=== PATIENT | male | born 1940 | race Caucasian/White ===

== ENCOUNTER 2018-05-12 04:42 | Inpatient (IN) ==
[2018-05-05 09:51] LABS: HEMATOCRIT 35.3 % (42.0-52.0); HEMOGLOBIN 10.9 g/dL (14.0-18.0); MCH 32.2 PG (27-31); MCHC 30.9 g/dL (33-37); MCV 104.4 FL (81-99); MPV 10.1 FL (7.4-10.4); RBC 3.38 XMIL (4.7-6.1); RDW 16.5 % (11.5-14.5); WBC 7.65 X1000 (4.8-10.8)
[2018-05-05 10:46] LABS: CALCIUM 9.1 mg/dL (8.8-10.2); POTASSIUM 4.8 mmol/L (3.5-5.1)
[2018-05-05 10:48] LABS: CREATININE 7.3 mg/dL (0.7-1.2)
[2018-05-12] MEDS ORDERED: INVANZ 1 GM/NS 1 GM/50 ML IVPB ONE (05:44)
[2018-05-12] MEDS ORDERED: 1/2 NS 500 ML ONE (05:44)
[2018-05-12] MEDS ORDERED: FENTANYL ONE (06:25)
[2018-05-12] MEDS ORDERED: DIPRIVAN 1% ONE (06:25)
[2018-05-12] MEDS ORDERED: XYLOCAINE-MPF 2% ONE (06:27)
[2018-05-12] MEDS ORDERED: QUELICIN (DOSE) ONE (06:27)
[2018-05-12] MEDS ORDERED: NORCURON ONE (06:27)
[2018-05-12] MEDS ORDERED: SODIUM CHLORIDE 0.9% 10 ML ONE (06:27)
[2018-05-12 07:05] LABS: CALCIUM 9.3 mg/dL (8.8-10.2); POTASSIUM 4.2 mmol/L (3.5-5.1)
[2018-05-12 07:07] LABS: CREATININE 6.8 mg/dL (0.7-1.2)
[2018-05-12] MEDS ORDERED: EPHEDRINE ONE (07:16)
[2018-05-12] MEDS ORDERED: ROBINUL ONE (08:26)
[2018-05-12] MEDS ORDERED: NEOSTIGMINE ONE (08:26)
[2018-05-12 08:30] LABS: URINE SOURCE CATH
[2018-05-12 08:55] LABS: BILIRUBIN URINE NEGATIVE (NEGATIVE); BLOOD URINE SMALL (NEGATIVE); COLOR YELLOW; GLUCOSE URINE NEGATIVE (NEGATIVE); KETONE URINE NEGATIVE (NEGATIVE); LEUKOCYTES URINE NEGATIVE (NEGATIVE); NITRITE URINE NEGATIVE (NEGATIVE); PROTEIN URINE 100 mg/dL (NEGATIVE); SP GRAVITY URINE 1.004; TURBIDITY URINE CLEAR (CLEAR); UR EPITHELIAL CELLS <10 /HPF (<10); URINE BACTERIA NEGATIVE /HPF; URINE WBC <10 /HPF (<10); UROBILINOGEN URINE NORMAL (NORMAL)
[2018-05-12] MEDS ORDERED: ZOFRAN ONE (08:59)
[2018-05-12] MEDS ORDERED: SENSORCAINE-MPF 0.5%/EPI 1:200,000 ONE (09:00)
[2018-05-12] MEDS: DILAUDID ONE ×2 (09:42→09:47)
[2018-05-12] MEDS ORDERED: D5 1/2 NS 1,000 ML ONE (09:56)
[2018-05-12] MEDS ORDERED: D5 1/2 NS 1,000 ML IV SCH (10:49)
[2018-05-12] MEDS ORDERED: ZOFRAN IV PRN (10:49)
--- NOTE | 2018-05-12 11:16 | OPERATIVE NOTE ---
PROCEDURE DATE: 05/12/2018 PROCEDURE: Closure of colostomy; removal of tunneled dialysis catheter. SURGEON: Joseluis Ta MD ASSISTANTS: Arline and Meron. PREOPERATIVE DIAGNOSES: 1. 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 2. Chronic kidney disease stage 5. POSTOPERATIVE DIAGNOSES: 1. 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 2. Chronic kidney disease stage 5. INDICATIONS: A 77-year-old who 3 months ago had peritonitis from a perforated diverticulum and underwent construction of an end-colostomy and removal of the diseased segment of colon. He was on PD at that time. Since that time, we have constructed a fistula for hemodialysis and he has had a tunneled catheter. He now presents also for removal of the tunneled catheter since he is dialyzing via his fistula. DESCRIPTION OF PROCEDURE: Satisfactory general endotracheal anesthesia was achieved. The stoma was sewn together with a 0 Prolene pursestring stitch. The abdomen was then prepped and draped in a sterile fashion. We placed a counted sponge on the stoma and used an Ioban drape. We then made an incision in the midline in the area of the old scar. We carried our incision through the subcutaneous tissue and through the midline fascia. We opened the fascia to the extent of the skin incision. Some adhesions were present that were filmy. They were not dense. We placed the patient in Trendelenburg. We dissected into the pelvis. We identified the 2 Prolene stitches that were placed at the corners of the Ana pouch. We then dissected the adhesions around it so that we could easily identify into the Ana pouch. We then took a LULI 60 and the colostomy was easily visible, held retraction anteriorly, and we then divided the mesentery with the LigaSure and then used a LULI 60 blue cartridge to divide the colon inside the abdominal cavity. It laid into the pelvis easily without any tension. We then used our Bookwalter retractor and placed our retractors to expose the pelvis. The patient was in Trendelenburg. We then used electrocautery to cauterize the back of the Ana pouch down to the bowel itself. We did the same to the proximal colon. We then placed 3-0 silks in a Lembert fashion on the back wall of the seromuscular layer. After these were placed, we approximated the ends of the bowel. We then cut off the staple line of the Ana pouch as well as the proximal colon. We used a Katelin to widen the bowel distally since it had sort of contracted. We had adequate lumen and caliber to the lumen on both sides. We then used a 3-0 Polysorb running locking stitch for our inner layer stitch posteriorly, changed it to a Valeria stitch anteriorly, and then our final layer was 3-0 silks in a Lembert fashion. This completed a 2-layered anastomosis. We changed gloves and rid ourselves of the contaminated instruments at this point. We irrigated with warm saline. We then placed 3-0 silks along the mesentery to secure the mesentery to the retroperitoneum. We then proceeded to close the peritoneum with a 2-0 chromic. We closed the fascia with a running #2 Prolene. We irrigated out the subcutaneous tissue. We then closed the skin with sonny. We then covered the staple line. We then used a knife to incise the mucocutaneous junction circumferentially around the stoma. After mobilizing the stoma from the skin, we then cauterized along the course of the stoma until we delivered it out of the abdominal wall. We then closed the fascia and muscle layers with 0 Surgilon [id number] stitches. We copiously irrigated out and then used 3-0 Polysorb in the subcutaneous tissue. We then closed the skin transversely with sonny. Sterile dressings were applied. We changed gloves at this point. We then exposed the upper anterior chest and prepped and draped it in a sterile fashion. I anesthetized the skin over the course of the catheter with 0.5 Marcaine with epinephrine and made a longitudinal incision over the cuff, dissected down and freed the cuff. We then clamped the catheter and then divided the catheter, and removed the segment that was inside the vein. We held pressure above the clavicle to prevent any bleeding, and removed the subcutaneous portion as well. I placed a couple of 3-0 Polysorbs in the subcutaneous tissue then closed the skin with a 4-0 Polysorb subcuticular stitch. At this time, there was no further bleeding. A sterile OpSite was applied, and a Band- Aid. He tolerated the procedure satisfactorily and was sent to the recovery room in satisfactory condition. cc: MD Frank Barton MD
[2018-05-12] MEDS: HEPARIN SUBQ SCH ×2 (12:11→21:59)
[2018-05-12] MEDS: OFIRMEV 1000 MG/ISOTONIC SOLN 1,000 MG/100 ML BOTTLE IV SCH ×3 (12:12→21:58)
[2018-05-12] MEDS ORDERED: HUMALOG SUBQ SCH (13:00)
[2018-05-12] MEDS: DILAUDID IV PRN ×2 (13:36→18:47)
[2018-05-12] MEDS ORDERED: BASAGLAR SUBQ SCH (21:00)
[2018-05-12] MEDS ORDERED: LUNESTA PO SCH ×2 (21:00→21:45)
[2018-05-12] MEDS: PHOSLO PO SCH (21:46)
[2018-05-12] MEDS: PERIDEX MT SCH (21:47)
[2018-05-12] MEDS: ZOCOR PO SCH (21:47)
[2018-05-12] MEDS: PRINIVIL PO SCH (21:47)
[2018-05-12] MEDS: LASIX PO SCH (21:47)
[2018-05-13] MEDS ORDERED: HALL'S COUGH LOZENGE MT PRN (01:12)
[2018-05-13] MEDS: DILAUDID IV PRN ×3 (02:09→21:09)
--- NOTE | 2018-05-13 03:42 | GENERAL SURGERY PROGRESS NOTE ---
DATE: 05/12/2018 andandages are dry. He can add some ice chips. We will check his labs in the morning. Dr. Martin has been by to see him. cc: Joseluis Ta MD
[2018-05-13] MEDS: OFIRMEV 1000 MG/ISOTONIC SOLN 1,000 MG/100 ML BOTTLE IV SCH (05:04)
[2018-05-13] MEDS: PRILOSEC PO SCH ×2 (05:58→06:04)
--- NOTE | 2018-05-13 06:40 | NEPHROLOGY CONSULTATION ---
DATE: 05/12/2018 REASON FOR CONSULTATION: Dialysis Saturday, and Saturday. HISTORY OF PRESENT ILLNESS: Mr. Hughes is a 77-year-old white male who is well known to me. He has diabetes, hypertension, CKD 5D. He recently had a diverticular abscess that necessitated discontinuation of peritoneal dialysis and he is transition to hemodialysis after he underwent colon resection and diverting colostomy. He now has a fistula in the left upper arm that has been cannulated x2. He was admitted to have elective removal of his tunneled dialysis catheter and anastomosis of his colon. He is seen after surgery. He has minimal pain though he has recently been treated. No shortness of breath, nausea, vomiting, or other symptoms. PAST MEDICAL HISTORY: As above. HOME MEDICATIONS: Include: 1. Lunesta. 2. Lysine. 3. Citalopram. 4. Aspirin. 5. Simvastatin. 6. Lisinopril. 7. Insulin. 8. Atenolol. 9. Omeprazole. 10. Pramipexole. 11. Calcium acetate. 12. Folate. 13. Furosemide. ALLERGIES: Contrast. SOCIAL: History he is and lives with his here in [place]. No alcohol or tobacco. FAMILY HISTORY: Negative otherwise. REVIEW OF SYSTEMS: Negative otherwise. PHYSICAL EXAMINATION: Vital Signs: Blood pressure 124/60, heart rate 66, afebrile. General: No acute distress. Lying flat. Skin: Warm and dry. Conjunctivae are pink. Neck: Neck veins are not distended. Heart: Regular. No gallops. Lungs: Equal. No crackles or wheezes. Abdomen: Soft, nontender. Bowel sounds present. Surgical wounds are dressed. Extremities: Have no edema, clubbing, or cyanosis. There is bruising overlying his left upper arm fistula. IMPRESSION: Chronic kidney disease 5D. He will have his routine hemodialysis treatment tomorrow. Electrolytes and acid-base are in target. Anemia is in target. Blood pressure in target. Pain is being managed by Dr. Ta. His home medications have been resumed. cc: MD Joseluis Gill MD
[2018-05-13] MEDS ORDERED: TIGHT: 0.2 ML/HR FOR DIALYSIS MISC PRN (06:55)
[2018-05-13] MEDS ORDERED: HEPARIN IV PRN (06:55)
[2018-05-13] MEDS ORDERED: NS 2,000 ML MISC PRN (06:55)
[2018-05-13 07:23] LABS: HEMATOCRIT 35.2 % (42.0-52.0); HEMOGLOBIN 11.3 g/dL (14.0-18.0); MCH 33.2 PG (27-31); MCHC 32.1 g/dL (33-37); MCV 103.5 FL (81-99); MPV 9.8 FL (7.4-10.4); RBC 3.4 XMIL (4.7-6.1); RDW 16.2 % (11.5-14.5); WBC 9.08 X1000 (4.8-10.8)
[2018-05-13 07:46] LABS: CREATININE 7.9 mg/dL (0.7-1.2)
[2018-05-13 07:47] LABS: POTASSIUM 5.2 mmol/L (3.5-5.1)
[2018-05-13] MEDS: PERIDEX MT SCH ×2 (08:51→20:55)
[2018-05-13] MEDS: MIRAPEX PO SCH (08:51)
[2018-05-13] MEDS: CELEXA PO SCH (08:52)
[2018-05-13] MEDS: NEPHRO-VITE PO SCH (08:52)
[2018-05-13] MEDS: ASPIRIN PO SCH (08:54)
--- NOTE | 2018-05-13 12:28 | GENERAL SURGERY PROGRESS NOTE ---
DATE: 05/13/2018 SUBJECTIVE: Mr. Hughes is doing generally well. Said he slept about 3 hours. OBJECTIVE: Vital signs: He is afebrile. His hemodynamics are good this morning. Abdomen: Bowel sounds are present. Abdomen is mildly tympanitic. He denies any nausea. LABORATORY DATA: White count is 9000, hemoglobin 11.3, hematocrit 35. Glucoses are in the 136 range. PLAN: Remove his Quinonez. We will allow him to have some liquids. He knows not to get too aggressive with the liquids. He will go for dialysis today. cc: Joseluis Ta MD
--- NOTE | 2018-05-13 13:22 | NEPHROLOGY PROGRESS NOTE ---
DATE: 05/13/2018 SUBJECTIVE: Patient states that no real issues overnight. He just could not sleep. OBJECTIVE: Vital Signs: Temperature 98.5 degrees, pulse 63, respiratory rate 18, blood pressure 100/50. Intake and output: Intake 1.6 L. Output 1.1 L. PHYSICAL EXAMINATION: General: This is an elderly gentleman, resting in bed. Awake and alert. No acute distress. HEENT: Normocephalic, atraumatic. REJI. Oral mucosa is moist. Neck: Supple without JVD. Cardiovascular: Regular rate and rhythm without murmur or gallop. Pulmonary: He is clear bilaterally. He has no increased work of breathing. Abdomen: Soft, mildly tender. He has a surgical dressing to the lower central abdomen area. No bleeding noted. Genitourinary: Not inspected. Voiding. Extremities: No clubbing, cyanosis, or edema. AV fistula, left upper extremity, noted. Integumentary: Skin is warm and dry otherwise. He has a surgical dressing to the abdomen and to the left upper chest wall from where his tunnel catheter was removed. LABORATORY DATA: Sodium 137, potassium 4.2, CO2 of 26, BUN 75, creatinine 6.8, albumin 3.1. ASSESSMENT AND PLAN: Chronic kidney disease, 5D. The patient states that he does normally dialyze on a Saturday, , Saturday schedule. We will continue this while he is in the hospital. We will plan to dialyze today on a 2 K bath/UF to dry weight, 4-hour treatment. Dictated by JANNA Cooney for Frank Martin MD Face to face encounter, data reviewed, discussed with Yash Hoff on 05/13/18. I agree with the above assessment and plan of care. cc: MD Joseluis Gill MD MTDD
[2018-05-13] MEDS: LASIX PO SCH ×2 (14:22→20:55)
[2018-05-13] MEDS: HEPARIN SUBQ SCH ×2 (14:23→20:55)
[2018-05-13] MEDS: TENORMIN PO SCH (14:23)
[2018-05-13] MEDS: PRINIVIL PO SCH ×2 (14:25→20:55)
[2018-05-13] MEDS: PATIENT'S OWN MED PO SCH (14:26)
[2018-05-13] MEDS ORDERED: TYLENOL PO ONE (20:21)
[2018-05-13] MEDS: ZOCOR PO SCH (20:55)
[2018-05-13] MEDS: AMBIEN PO SCH (20:55)
[2018-05-13] MEDS: PHOSLO PO SCH (20:56)
[2018-05-14] MEDS: DILAUDID IV PRN (01:58)
[2018-05-14] MEDS ORDERED: SALINE LOCK IV FLUID XX ONE (08:35)
[2018-05-14] MEDS: NEPHRO-VITE PO SCH (08:53)
[2018-05-14] MEDS: ASPIRIN PO SCH (08:53)
[2018-05-14] MEDS: PERIDEX MT SCH ×2 (08:53→22:14)
[2018-05-14] MEDS: PRINIVIL PO SCH ×2 (08:53→22:14)
[2018-05-14] MEDS: TENORMIN PO SCH (08:53)
[2018-05-14] MEDS: CELEXA PO SCH (08:53)
[2018-05-14] MEDS: LASIX PO SCH ×2 (08:53→22:14)
[2018-05-14] MEDS: MIRAPEX PO SCH (08:54)
--- NOTE | 2018-05-14 09:02 | GENERAL SURGERY PROGRESS NOTE ---
DATE: 05/14/2018 SUBJECTIVE: Mr. Hughes is doing well. He has passed quite a bit of flatus. He has tolerated his clear liquids. He is afebrile. PLAN: The plan will be to advance his diet to full liquids. [facility] will see him in my absence and return to see me in follow-up a week after discharge. cc: Joseluis Ta MD
[2018-05-14] MEDS: HEPARIN SUBQ SCH ×2 (13:00→22:13)
--- NOTE | 2018-05-14 14:16 | NEPHROLOGY PROGRESS NOTE ---
DATE: 05/14/2018 SUBJECTIVE: Patient resting in bed. He is hoping to eat something besides clear liquids. OBJECTIVE: Vital Signs: Temperature 98.7, pulse 80. Respiratory rate 17, blood pressure 109/49. Intake 680 mL. Output 1.7 L. General: Elderly gentleman. Resting in bed. Awake and alert. No acute distress. HEENT: Normocephalic, atraumatic. REJI. Neck: Supple. He has no JVD. Cardiovascular: Regular rate and rhythm. Pulmonary: Clear bilaterally. On room air. Surgical dressings noted. No bleeding. Integument: Skin is warm and dry otherwise. Extremities: No clubbing, cyanosis or edema. He has AV fistula left upper extremity. LAB DATA: None. No new labs. ASSESSMENT/PLAN: Chronic kidney disease 5D. He dialyzes on Saturday, , Saturday. We will keep him on this schedule while he remains in the hospital Next dialysis we will plan for tomorrow. Dictated by JANNA Cooney for Frank Martin MD Face to face encounter, data reviewed, discussed with Yash Hoff on 05/14/18. I agree with the above assessment and plan of care. cc: MD Joseluis Gill MD [facility]
[2018-05-14] MEDS: PATIENT'S OWN MED PO SCH (15:25)
[2018-05-14] MEDS: ZOCOR PO SCH (22:14)
[2018-05-14] MEDS: AMBIEN PO SCH (22:14)
[2018-05-14] MEDS: PHOSLO PO SCH (22:18)
[2018-05-15] MEDS ORDERED: NORCO-10 PO PRN (05:21)
--- NOTE | 2018-05-15 05:47 | GENERAL SURGERY PROGRESS NOTE ---
DATE: 05/15/2018 The patient seems to be doing well. He has had a large bowel movement, up and walking around. He tolerated his full liquid diet. Hemodynamically he has been stable. His incisions look like they are healing well. He does have bowel sounds auscultated. At this point we are transitioning him over to oral pain medicine, switch him over to a diabetic diet and see how he does. He does get dialysis on Saturday, , Saturday and we will likely get him through dialysis today and potential discharge tomorrow morning. cc: MD Joseluis Ruiz MD
[2018-05-15] MEDS: PHOSLO PO SCH ×2 (06:03→20:51)
[2018-05-15] MEDS: PRILOSEC PO SCH ×2 (06:03→06:54)
[2018-05-15] MEDS ORDERED: NS 2,000 ML MISC PRN (07:07)
[2018-05-15] MEDS ORDERED: TIGHT: 0.2 ML/HR FOR DIALYSIS MISC PRN (07:07)
[2018-05-15] MEDS ORDERED: HEPARIN IV PRN (07:07)
[2018-05-15 07:31] LABS: HEMOGLOBIN 11.9 g/dL (14.0-18.0); MCH 32.4 PG (27-31); MCHC 31.3 g/dL (33-37); MCV 103.5 FL (81-99); MPV 9.8 FL (7.4-10.4); RBC 3.67 XMIL (4.7-6.1); RDW 16.1 % (11.5-14.5); WBC 7.77 X1000 (4.8-10.8)
[2018-05-15 07:39] LABS: ALBUMIN 3.7 g/dL (3.5-5.0); CALCIUM 9.3 mg/dL (8.8-10.2); PHOSPHORUS 6.8 mg/dL (2.7-4.5); POTASSIUM 4.1 mmol/L (3.5-5.1)
[2018-05-15 07:43] LABS: CREATININE 7.1 mg/dL (0.7-1.2)
--- NOTE | 2018-05-15 10:09 | NEPHROLOGY PROGRESS NOTE ---
DATE: 05/15/2018 SUBJECTIVE: Mr. Hughes is resting quietly in bed. He has no complaints. States that he is feeling just a little bit better. His right chest wall is slightly tender, but otherwise no further complaints. LABORATORY DATA: Sodium is 136, potassium 4.1, chloride 95, CO2 of 25, BUN 33, creatinine 7.1, glucose 165, anion gap is 16, calcium 9.3, phosphorus 6.8, albumin 3.7. White count 7.77, hemoglobin 11.9, hematocrit 38, platelet count 286,000. PHYSICAL EXAMINATION: His most recent vital signs: Temperature 97.8 degrees, blood pressure 128/60, heart rate 65, respirations 18. He is on room air. Last recorded saturation is 99%. He has had 400 in. He has had 670 mL out. General: This is a 77-year-old white male. He is currently resting quietly in bed. He appears in no acute distress. Skin: Warm and dry. HEENT: Normocephalic, atraumatic. Conjunctivae is pale. He has REJI. Mucous membranes are dry. Neck: Supple. Trachea midline. No evidence of JVD. Cardiovascular: Regular rate and rhythm. He is without murmur or gallop. Lungs: Clear to auscultation bilaterally. Equal excursion on room air. Abdomen: Soft. Incision is dry, healing well without drainage. Positive bowel sounds. Genitourinary: Not inspected. Minimal void with dialysis assist. Extremities : No edema. No clubbing or cyanosis. Neurological: Alert and oriented x3. Integumentary: The patient has a dressing to his right chest wall. Slightly tender. Otherwise, fistula to the left upper arm with good positive thrill. Slight bruising present. ASSESSMENT AND PLAN: 1. Chronic kidney disease stage 5D. The patient is due for his routine dialysis treatment today. We will place him on a 2-potassium bath. He is to dialyze for 3.5 hours. We will pull him to an outpatient dry weight. 2. Electrolytes, acid-base balance, and anemia. These are all acceptable. 3. Status post small bowel resection. The patient has had a bowel movement. He is eating small amounts yesterday and today. Followed by surgical team. I would to thank you for allowing us to follow with this patient. Dictated by JANNA Goldsmithdish, MD Face to face encounter, data reviewed, discussed with Tapan Keen on 05/15/18. I agree with the above assessment and plan of care. cc: JANNA Goldsmith MD Robert C. Walker, MD [facility]
[2018-05-15] MEDS: ASPIRIN PO SCH (14:28)
[2018-05-15] MEDS: NEPHRO-VITE PO SCH (14:29)
[2018-05-15] MEDS: PERIDEX MT SCH ×2 (14:29→20:47)
[2018-05-15] MEDS: CELEXA PO SCH (14:29)
[2018-05-15] MEDS: LASIX PO SCH ×2 (14:33→20:47)
[2018-05-15] MEDS: MIRAPEX PO SCH (14:33)
[2018-05-15] MEDS: PATIENT'S OWN MED PO SCH (14:37)
[2018-05-15] MEDS: TENORMIN PO SCH (14:39)
[2018-05-15] MEDS: PRINIVIL PO SCH ×2 (14:40→20:47)
[2018-05-15] MEDS: HEPARIN SUBQ SCH ×3 (15:15→22:09)
[2018-05-15] MEDS ORDERED: MISC. PHARMACY COMMUNICATION SCH (18:00)
[2018-05-15] MEDS: ZOCOR PO SCH (20:47)
[2018-05-15] MEDS: AMBIEN PO SCH (20:48)
[2018-05-15] MEDS ORDERED: INSULIN PEN NEEDLES ONE (21:43)
[2018-05-15] MEDS: HUMALOG SUBQ SCH (21:46)
--- NOTE | 2018-05-16 05:51 | GENERAL SURGERY PROGRESS NOTE ---
DATE: 05/16/2018 Patient doing well. He tolerated his GI soft diet. He has been hemodynamically stable. He has continued to have a bowel movements, doing well. He did have hemodialysis yesterday. From a surgical point of view, I think he can be discharged home and we will make discharge arrangements. cc: MD Joseluis Ruiz MD
[2018-05-16] MEDS: PRILOSEC PO SCH (06:15)
[2018-05-16] MEDS: HUMALOG SUBQ SCH (06:16)
[2018-05-16 08:04] VITALS: BP 113/52
[2018-05-16] MEDS: MIRAPEX PO SCH (08:15)
[2018-05-16] MEDS: PERIDEX MT SCH (08:15)
[2018-05-16] MEDS: ASPIRIN PO SCH (08:15)
[2018-05-16] MEDS: TENORMIN PO SCH (08:15)
[2018-05-16] MEDS: LASIX PO SCH (08:15)
[2018-05-16] MEDS: CELEXA PO SCH (08:16)
[2018-05-16] MEDS: PATIENT'S OWN MED PO SCH (08:16)
[2018-05-16] MEDS: NEPHRO-VITE PO SCH (08:16)
[2018-05-16] MEDS: PRINIVIL PO SCH (08:16)
[2018-05-16 09:46] LABS: ALBUMIN 3.9 g/dL (3.5-5.0); CALCIUM 9.5 mg/dL (8.8-10.2); PHOSPHORUS 4.2 mg/dL (2.7-4.5); POTASSIUM 3.8 mmol/L (3.5-5.1)
[2018-05-16 09:58] LABS: CREATININE 5.5 mg/dL (0.7-1.2)
--- NOTE | 2018-06-04 10:54 | DISCHARGE SUMMARY ---
ADMISSION DATE: 05/12/2018 DISCHARGE DATE: 05/16/2018 DISCHARGE DIAGNOSIS: History of colostomy secondary to perforated diverticulum. OTHER DIAGNOSES: Include end-stage renal disease. PRIMARY PROCEDURE: 1. Closure of the colostomy. 2. Removal of tunneled dialysis catheter. HOSPITAL COURSE: This is a 77-year-old, who presents now for closure of his colostomy after construction of the colostomy 3 months ago from a perforated diverticulum. His bowel was prepped as an outpatient. He was admitted on the , taken to the operating room, and underwent the above procedure. We also removed his tunneled dialysis catheter. He has had a functional fistula. Postoperatively, he did generally well. We allowed him to have ice chips immediately postoperatively. Dr. Martin saw him and dialyzed him while he was in the hospital. We removed his Quinonez on 05/13/2018 and started him on clear liquids. We advanced his diet on the by giving him full liquids. By 05/16/2018, he was tolerating solid food, his bowels had moved, his wound was fine, and it was felt he could be discharged home. He will continue with his usual dialysis as an outpatient. He will return to see me in the office in a week. cc: Joseluis Ta MD
== END 2018-05-16 09:23 | disposition home or self-care (01) | DRG 329 ==
LOC: SURHOLD 04:42 → 4N 08:14
PROVIDERS: ADMIT Surgery; ATTEND Surgery
CPT/HCPCS: 80048; 80069; 81001; 82948; 85027; 88300; 88304; 94761; 94799; A9270; J0131; J0330; J1170; J1335; J1644; J1815; J2405; J3010; J7030; XXXXX

== ENCOUNTER 2019-03-23 06:53 | Observation (INO) ==
[2019-03-23] MEDS ORDERED: DIPRIVAN 1% ONE (07:27)
[2019-03-23] MEDS ORDERED: XYLOCAINE-MPF 2% ONE (07:28)
[2019-03-23] MEDS ORDERED: PEPCID ONE (07:31)
[2019-03-23] MEDS ORDERED: LR 500 ML ONE (07:32)
[2019-03-23] MEDS ORDERED: KEFZOL 1 GM/D5W 2 GM/100 ML IVPB ONE (07:32)
[2019-03-23] MEDS ORDERED: MARCAINE 0.5% ONE (08:11)
--- NOTE | 2019-03-23 08:43 | EKG Report ---
Test Performed on : 03/23/2019 07:28:10 AM Test Reason : Preop Blood Pressure : / mmHG Vent. Rate : 065 BPM Atrial Rate : 065 BPM P-R Int : 224 ms QRS Dur : 102 ms QT Int : 446 ms P-R-T Axes : 060 081 059 degrees QTc Int : 463 ms Atrial-paced rhythm with prolonged AV conduction Abnormal ECG When compared with ECG of 13-SEP-2016 06:49, Nonspecific T wave abnormality no longer evident in Lateral leads Confirmed by Mike PEDRAZA, Mao Kelley ([id number]) on 03/23/2019 9:29:31 AM
[2019-03-23 08:58] LABS: HEMATOCRIT 27.1 % (42.0-52.0); HEMOGLOBIN 8.5 g/dL (14.0-18.0); MCHC 31.4 g/dL (33-37); MCV 111.5 FL (81-99); MPV 10.9 FL (7.4-10.4); RBC 2.43 XMIL (4.7-6.1); RDW 15.6 % (11.5-14.5); WBC 5.84 X1000 (4.8-10.8)
[2019-03-23] MEDS ORDERED: OFIRMEV 1000 MG/ISOTONIC SOLN 1,000 MG/100 ML BOTTLE ONE (09:25)
[2019-03-23 09:31] LABS: CALCIUM 9.5 mg/dL (8.8-10.2); CREATININE 6.4 mg/dL (0.7-1.2); POTASSIUM 4.4 mmol/L (3.5-5.1)
[2019-03-23] MEDS ORDERED: MORPHINE ONE (09:38)
[2019-03-23] MEDS: DILAUDID ONE ×2 (10:24→10:28)
--- NOTE | 2019-03-23 10:44 | OPERATIVE NOTE ---
PROCEDURE DATE: 03/23/2019 PREOPERATIVE DIAGNOSIS: Right knee internal derangement. POSTOPERATIVE DIAGNOSES: 1. Right knee degenerative tear posterior medial meniscus. 2. 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 PROCEDURE: Arthroscopy of right knee with partial medial meniscectomy. ANESTHESIA: General. SURGEON: Bo Aleman MD. TOOL SETTER: Mik. INDICATIONS FOR PROCEDURE: Mr. Hughes is a 78-year-old male, who had intractable right knee pain. He cannot obtain an MRI due to the presence of the pacemaker. We, therefore elected to undergo diagnostic arthroscopy of his knee. DESCRIPTION OF PROCEDURE IN DETAIL: Patient brought to the operative suite and placed in supine position. After successful administration of general anesthesia, a well-padded tourniquet was placed on the right proximal thigh. Right lower extremity was prepped and draped in the usual sterile fashion. Leg was exsanguinated. Tourniquet insufflated to 350 torr. Through the lateral arthroscopy portal, the knee was serially examined and found to have above outlined pathology. Through the medial arthroscopy portal with the handheld rotary instruments, the medial meniscus tear was debrided back to a stable margin. He is found to have grade 3-4 chondromalacia of the medial compartment, as well as the femoral trochlea. The lateral compartment was basically intact with mild chondromalacia and fraying. There were no loose bodies in the medial or lateral gutter or suprapatellar pouch. The ACL and PCL appeared intact. The arthroscopy was removed. The incisions were closed with interrupted nylon. The incisions of the knee were injected with Marcaine and a sterile dressing was applied. The patient tolerated the procedure well without complications. At the end of the procedure, all counts correct x2. The patient was transferred to the recovery room in stable condition. cc: Bo Aleman MD
[2019-03-23] MEDS ORDERED: NORCO-5 PO PRN (11:07)
[2019-03-23] MEDS ORDERED: NORCO-7.5 PO PRN (11:08)
[2019-03-23] MEDS ORDERED: D50W SYRINGE IV PRN (14:08)
[2019-03-23] MEDS ORDERED: HUMALOG SUBQ SCH (16:00)
[2019-03-23] MEDS: PHOSLO PO SCH (18:27)
[2019-03-23] MEDS: TENORMIN PO SCH (18:28)
[2019-03-23] MEDS: PRINIVIL PO SCH (18:28)
[2019-03-23] MEDS: PATIENT'S OWN MED PO SCH (18:28)
[2019-03-23] MEDS: ZOCOR PO SCH (18:28)
[2019-03-23] MEDS: LASIX PO SCH ×2 (18:28→23:22)
[2019-03-23] MEDS: ASPIRIN PO SCH (18:29)
[2019-03-23] MEDS: HUMALOG SUBQ SCH ×2 (18:29→21:00)
[2019-03-23] MEDS: PERIDEX MT SCH (20:02)
[2019-03-23] MEDS: BENADRYL PO SCH (20:03)
[2019-03-23] MEDS: NORCO-10 PO PRN (20:03)
[2019-03-23] MEDS ORDERED: LANTUS INSULIN SUBQ SCH (21:00)
[2019-03-23] MEDS: VENTOLIN HFA INH PRN (21:27)
[2019-03-23] MEDS ORDERED: SODIUM CHLORIDE 0.9% INJ ONE (23:36)
[2019-03-23] MEDS ORDERED: PROTONIX IV ONE (23:36)
[2019-03-23] MEDS ORDERED: PHENERGAN IV PRN (23:37)
[2019-03-23] MEDS ORDERED: SODIUM CHLORIDE 0.9% INJ PRN (23:37)
[2019-03-23] MEDS ORDERED: DILAUDID IV PRN (23:42)
[2019-03-24] MEDS: MIRAPEX PO SCH ×3 (00:14→22:28)
[2019-03-24] MEDS: NORCO-10 PO PRN ×3 (00:18→22:27)
[2019-03-24] MEDS: LANTUS INSULIN SUBQ SCH (04:35)
[2019-03-24] MEDS: AMBIEN PO SCH ×2 (04:35→22:31)
[2019-03-24] MEDS: TYLENOL PO SCH ×2 (04:35→22:31)
[2019-03-24] MEDS: PRINIVIL PO SCH ×3 (04:35→17:34)
[2019-03-24] MEDS ORDERED: TIGHT: 0.2 ML/HR FOR DIALYSIS MISC PRN (06:14)
[2019-03-24] MEDS ORDERED: NS 2,000 ML MISC PRN (06:14)
[2019-03-24] MEDS ORDERED: HEPARIN IV PRN (06:14)
[2019-03-24] MEDS: VENTOLIN HFA INH PRN (08:09)
[2019-03-24] MEDS: HUMALOG SUBQ SCH ×5 (08:14→22:28)
[2019-03-24] MEDS ORDERED: MIRAPEX PO SCH (09:00)
[2019-03-24] MEDS: CELEXA PO SCH (09:11)
[2019-03-24] MEDS: PERIDEX MT SCH ×2 (09:11→22:28)
[2019-03-24] MEDS: PHOSLO PO SCH ×3 (09:11→17:33)
[2019-03-24] MEDS: LASIX PO SCH ×2 (09:11→17:34)
[2019-03-24] MEDS: PRILOSEC PO SCH (09:11)
[2019-03-24] MEDS: NEPHRO-VITE PO SCH (09:11)
[2019-03-24] MEDS: ALBUTEROL NEB INH PRN ×2 (09:28→22:40)
--- NOTE | 2019-03-24 15:51 | NEPHROLOGY CONSULTATION ---
DATE: 03/24/2019 REASON FOR ADMISSION: Right total knee arthroscopic per Dr. Aleman. REASON FOR CONSULT: Arrange dialysis. HISTORY OF PRESENT ILLNESS: Mr. Hughes is a 78-year-old white male who is known to our outpatient services for hemodialysis on Saturday, , Saturday at the [facility]. The patient had right knee pain for several months, which eventually resulted in requiring a right knee arthroscopy. This was performed yesterday. Patient was admitted overnight and is requiring hemodialysis this a.m. He currently denies chest pain. No increased work of breathing. Some swelling to the right knee. No nausea, vomiting, no diarrhea. No fever or chills. No recent falls. PAST MEDICAL HISTORY: End-stage renal disease secondary to diabetes, hypertension, coronary artery disease, anemia of chronic disease, diverticulitis, small bowel obstruction, colostomy with colostomy reversal, asthma, depression, GERD, hyperlipidemia, iron deficiency anemia, calcium disorder, insomnia, restless legs syndrome, osteoarthritis, secondary hyperparathyroidism, fluid volume overload, and generalized pain. PAST SURGICAL HISTORY: Right knee arthroscopy on 03/23/2019. Left upper arm AV fistula abdominal resection, abdominal reversal of colostomy, PD catheter, pacemaker, cardiac stents x3, right hip replacement, left knee arthroscopy, appendectomy, bilateral cataracts, tonsillectomy and adenoidectomy. SOCIAL HISTORY: He is . He lives with his spouse. Denies tobacco, alcohol or any illicit drug use. Retired. FAMILY HISTORY: Father is from heart disease, cardiac OR. Mother from ischemic bowel. Assumed old age. Siblings, several , cardiac. Children, he has 2 daughters. Siblings are with cardiac and OR. Daughter 1 cirrhotic arthritis with endometriosis. Second daughter with bone and calcium disorders, teeth extractions. Grand children healthy. ALLERGIES: No known drug allergies. HOME MEDICATIONS: Listed, simvastatin, omeprazole, Tylenol arthritis, Dialyvite, Celexa, Mirapex, Lantus, Humalog, Lasix, calcium acetate, low-dose aspirin, lisinopril, Ambien, Flonase, lidocaine, prilocaine cream, Lunesta, glucosamine and Remeron. REVIEW OF SYSTEMS: Times 10 with pertinent positives listed above in the HPI. MOST RECENT VITAL SIGNS: Temperature 98.6 degrees, blood pressure 165/66, heart rate 66, respirations are 20. He is currently on 2 L per BiPAP. He has had 640 and 705 out with 5 mL of blood loss. PHYSICAL EXAMINATION: General: This is a 78-year-old white male. He is resting quietly in bed. He is currently on BiPAP. He appears in no acute distress. Skin: Warm and dry. HEENT: Normocephalic, atraumatic. Conjunctiva is pale pink. He has REJI. Mucous membranes are dry. Neck: Supple. Trachea midline. No evidence of JVD. Cardiovascular: Regular rate and rhythm. No murmur or gallop appreciated. Lungs: Clear to auscultation anteriorly. Equal excursion on O2. Abdomen: Soft, nontender, positive bowel sounds. Genitourinary: Not inspected. The patient continues to void with dialysis assist. Extremities: His right leg is currently in an Vladimir wrap with an immobilizer pillow in place from his toes up above his knee. This is dry and intact. He has an SCD to his left leg. No edema present. Neurological: Alert and oriented x3. ASSESSMENT AND PLAN: 1. Chronic kidney disease stage 5D. The patient is in need for dialysis today. We will place him on a 2 K bath. He is to dialyze for 3.5 hours. We will pull patient to his outpatient dry weight. 2. Electrolytes and acid-base balance. These are currently pending this a.m. with correction on dialysis. 3. Anemia. Previous hemoglobin of 8.5. This is currently ordered also this a.m. No indications for transfusion based upon baseline labs. 4. Right knee arthroscopy, followed by Dr. Aleman with possibility of discharge with rehab. I would like to thank you for allowing us to follow with this patient. Dictated by JANNA Goldsmith for Frank Martin MD Face to face encounter, data reviewed, discussed with Tapan Keen on 03/24/19. I agree with the above assessment and plan of care. cc: JANNA Goldsmith MD Richard S. Sharp, MD [facility]
[2019-03-24] MEDS: ZOCOR PO SCH (17:33)
[2019-03-24] MEDS: ASPIRIN PO SCH (17:34)
[2019-03-24] MEDS: TENORMIN PO SCH (17:34)
[2019-03-24] MEDS: PATIENT'S OWN MED PO SCH (17:37)
[2019-03-24] MEDS: BENADRYL PO SCH (22:27)
[2019-03-25] MEDS: LANTUS INSULIN SUBQ SCH (01:44)
[2019-03-25 07:05] LABS: BASO# 0.04 X1000 (0.0-0.2); BASO% 0.4 % (0.0-0.8); EOS# 0.04 X1000 (0.0-0.7); EOS% 0.4 % (0.0-10.0); HEMATOCRIT 27.6 % (42.0-52.0); HEMOGLOBIN 8.7 g/dL (14.0-18.0); IMM GRAN# 0.02 X1000 (0.0-0.04); IMM GRAN% 0.2 % (0.0-0.5); LYMPH# 0.92 X1000 (1.2-3.4); LYMPH% 8.1 % (20.5-51.1); MCH 34.1 PG (27-31); MCHC 31.5 g/dL (33-37); MCV 108.2 FL (81-99); MONO# 1.12 X1000 (0.11-0.59); MONO% 9.9 % (1.7-9.3); MPV 11.2 FL (7.4-10.4); PLT 291 X1000 (130-400); RBC 2.55 XMIL (4.7-6.1); RDW 15.3 % (11.5-14.5); WBC 11.34 X1000 (4.8-10.8)
[2019-03-25 07:08] LABS: CALCIUM 9.8 mg/dL (8.8-10.2); CREATININE 6.9 mg/dL (0.7-1.2); PHOSPHORUS 5.9 mg/dL (2.7-4.5); POTASSIUM 5.3 mmol/L (3.5-5.1)
[2019-03-25] MEDS: HUMALOG SUBQ SCH ×3 (07:26→16:46)
--- NOTE | 2019-03-25 08:20 | DISCHARGE SUMMARY ---
ADMISSION DATE: 03/23/2019 DISCHARGE DATE: 03/24/2019 DISCHARGE DIAGNOSIS: Right knee medial meniscus tear and degenerative joint disease status post arthroscopy right knee. DISCHARGE MEDICATIONS: See discharge medication list. DISPOSITION: The patient is discharged home with home health physical therapy. Instructed to return for any signs of infection, deep venous thrombosis. Instructed to return to see Dr. Aleman next week. HOSPITAL COURSE: On the day of admission patient underwent an arthroscopy of his right knee. His postoperative course was complicated by pain and he is also a dialysis patient. He was able to ambulate with physical therapy. He is discharged home today after dialysis with instructions to follow up as described above. cc: Bo Aleman MD
[2019-03-25] MEDS: PRILOSEC PO SCH (09:40)
[2019-03-25] MEDS: LASIX PO SCH ×2 (09:40→18:28)
[2019-03-25] MEDS: PHOSLO PO SCH ×4 (09:40→16:42)
[2019-03-25] MEDS: NEPHRO-VITE PO SCH (09:40)
[2019-03-25] MEDS: PRINIVIL PO SCH ×2 (09:41→18:28)
[2019-03-25] MEDS: CELEXA PO SCH (09:41)
[2019-03-25] MEDS: PERIDEX MT SCH ×2 (09:41→21:35)
[2019-03-25] MEDS: NORCO-10 PO PRN (11:06)
--- NOTE | 2019-03-25 13:31 | NEPHROLOGY PROGRESS NOTE ---
DATE: 03/25/2019 SUBJECTIVE: Mr. Hughes is resting quietly in bed. He remains on his CPAP. States that he does have slight discomfort to his right knee though the pain is easing, only increases with movement. OBJECTIVE: His most recent vital signs temperature 98.2 degrees, blood pressure 120/60, heart rate 65, respirations 18, he is on 2 L nasal cannula. Last recorded saturation 94%. He has had 360 in and 3200 out with dialysis yesterday. LABORATORY DATA: Sodium is 133. His potassium is 5.3, chloride 90, CO2 27, BUN 57, creatinine of 6.9, glucose of 193, anion gap of 16. Patient's calcium is 9.8, phosphorus 5.9, albumin is 4. White count 11.43, hemoglobin 8.7, hematocrit 27.6, platelet count 291,000. PHYSICAL EXAMINATION: General: This is a 78-year-old white male resting quietly in bed. He appears in no acute distress. Skin: Warm and dry. HEENT: Normocephalic, atraumatic. Conjunctiva is pale pink. He has REJI. Mucous membranes are moist. Neck: Supple. Trachea midline. No evidence of JVD. Cardiovascular: Regular rate and rhythm. No murmur or gallop appreciated. Lungs: Clear to auscultation bilaterally. Equal excursion. Remains on his CPAP. Abdomen: Large, round, soft, nontender. Positive bowel sounds. Genitourinary: Not inspected. Patient has been voiding adequate amount with dialysis assist. Extremities: Continues with Vladimir wrap with an immobilizer pillow in place. His toes are warm. Trace edema to the right hip. No edema on the left. SCD to the left. No edema present. Neurologic: Alert and oriented x3. ASSESSMENT AND PLAN: 1. Chronic kidney disease stage 5D. The patient is in need of dialysis in the a.m. We have determined that if he is discharged today. He is to go to his treatment tomorrow as per his prescription. Otherwise, we will plan for dialysis in the hospital. 2. Electrolytes and acid-base balance. This will be with correction on dialysis. These remain stable at this time. 3. Right knee arthroscopic post surgery per Dr. Aleman. This is postoperative day #2. Followed by Dr. Aleman. 4. No indications for any changes. Possibility of discharge with rehab on an outpatient basis. I would like to thank you for allowing us to follow with this patient. Dictated by JANNA Goldsmith for Frank Martin MD Face to face encounter, data reviewed, discussed with Tapan Keen on 03/25/19. I agree with the above assessment and plan of care. cc: JANNA Goldsmith MD Richard S. Sharp, MD [facility]
[2019-03-25] MEDS ORDERED: ULTRAM PO PRN (16:32)
[2019-03-25] MEDS ORDERED: NORCO-5 PO PRN (16:34)
[2019-03-25] MEDS: ASPIRIN PO SCH (16:43)
[2019-03-25] MEDS: ZOCOR PO SCH (16:43)
[2019-03-25] MEDS: PATIENT'S OWN MED PO SCH (16:46)
[2019-03-25] MEDS: TENORMIN PO SCH (16:47)
[2019-03-25] MEDS: VENTOLIN HFA INH PRN ×2 (18:04→20:55)
[2019-03-25] MEDS: BENADRYL PO SCH (21:35)
[2019-03-25] MEDS: TYLENOL PO SCH (21:35)
[2019-03-25] MEDS: MIRAPEX PO SCH (21:35)
[2019-03-25] MEDS: AMBIEN PO SCH (21:35)
[2019-03-26] MEDS: HUMALOG SUBQ SCH ×4 (04:08→16:54)
[2019-03-26] MEDS: LANTUS INSULIN SUBQ SCH (04:09)
[2019-03-26] MEDS ORDERED: HEPARIN IV PRN (06:30)
[2019-03-26] MEDS ORDERED: TIGHT: 0.2 ML/HR FOR DIALYSIS MISC PRN (06:30)
[2019-03-26] MEDS ORDERED: NS 2,000 ML MISC PRN (06:30)
[2019-03-26 07:02] LABS: ALBUMIN 3.8 g/dL (3.5-5.0); CALCIUM 9.8 mg/dL (8.8-10.2); CREATININE 9.2 mg/dL (0.7-1.2); PHOSPHORUS 6.5 mg/dL (2.7-4.5); POTASSIUM 5.3 mmol/L (3.5-5.1)
[2019-03-26] MEDS ORDERED: ULTRAM PO PRN (08:22)
[2019-03-26] MEDS: PHOSLO PO SCH ×4 (08:44→17:51)
[2019-03-26] MEDS: PRINIVIL PO SCH ×2 (08:44→17:51)
[2019-03-26] MEDS: PRILOSEC PO SCH (08:44)
[2019-03-26] MEDS: CELEXA PO SCH (08:44)
[2019-03-26] MEDS: LASIX PO SCH ×2 (08:44→17:51)
[2019-03-26] MEDS: PERIDEX MT SCH (08:44)
[2019-03-26] MEDS: NEPHRO-VITE PO SCH (08:44)
[2019-03-26] MEDS ORDERED: HEPARIN SUBQ SCH (09:00)
--- NOTE | 2019-03-26 09:13 | Diag Imaging Result Doc PS360 ---
EXAM: CHEST-1 VIEW HISTORY: low o2 sat TECHNIQUE: Single view COMPARISON: 02/15/2018 FINDINGS: The lungs are well expanded. The heart is mildly enlarged. Left pacemaker. The vessels are not distended. There are no infiltrates. No effusion identified. IMPRESSION: Mild cardiomegaly Electronically signed by Esau Rodriguez 03/26/2019 9:11 AM
[2019-03-26] MEDS: ALBUTEROL NEB INH PRN (11:33)
--- NOTE | 2019-03-26 14:06 | ORTHOPAEDICS PROGRESS NOTE ---
DATE: 03/24/2019 SUBJECTIVE: Jordy Hughes is postoperative day 1 from a knee arthroscopy. He had extreme pain last night, and has intractable pain today. He complains of any pain with range of motion of his leg. He required nausea medicine and Dilaudid last night. OBJECTIVE: On exam, he has pain with any range of motion of his leg. Otherwise, he is neurovascularly intact. ASSESSMENT: Right leg arthroscopy and postoperative pain. PLAN: We are going to send him to dialysis today. We can see how he does with therapy. If he is doing better and wishes to go home later today, we can do that although he may need to stay at least another day. cc: Bo Aleman MD
--- NOTE | 2019-03-26 14:14 | ORTHOPAEDICS PROGRESS NOTE ---
DATE: 03/26/2019 SUBJECTIVE: Jordy is a 78-year-old male who is postoperative day 3 from an arthroscopy of his right knee. He states his knee is better. He is sitting up in a chair, but he is still lethargic and not terribly responsive. OBJECTIVE: He is a well-developed, well-nourished male. He does appear to have a little bit of chest congestion. He has increased range of motion of his knee, but is still having significant pain with it. IMPRESSION: Right knee arthroscopy. PLAN: I discussed him with Dr. Martin last night and we are going to see if we can't encourage him to continue to mobilize. I see no sign of a deep vein thrombosis. He does have some chest congestion and I think we need to cut off the narcotic pain medicines altogether. He needs to stick with just tramadol at best and try not to do that as well. He is going to dialysis this morning and hopefully he will do better with physical therapy. We will see how he does. cc: Bo Aleman MD
--- NOTE | 2019-03-26 14:32 | ORTHOPAEDICS PROGRESS NOTE ---
DATE: 03/24/2019 SUBJECTIVE: Jordy Hughes is a 78-year-old male who is postoperative day 2 from a total knee arthroplasty. He underwent dialysis yesterday and they tried to send him home but he would not cooperate today. He is very lethargic and I am speaking with his Stacey. They have cut back his pain medicine. He still seems lethargic. He is hypoxic, somewhat as well. He complains of pain with any range of motion of his knee and he drifts in and out of awareness. OBJECTIVE: On exam, he has pain with any range of motion of his knee, but his leg is neurovascularly intact. ASSESSMENT: Right knee arthroscopy with minimal progress with physical therapy and low oxygen saturation shows. We will continue to keep him here for now. We will continue physical therapy. Continue dialysis tomorrow. Hopefully, we can get him home later in the week and get him ambulatory. cc: Bo Aleman MD
--- NOTE | 2019-03-26 15:35 | NEPHROLOGY PROGRESS NOTE ---
DATE: 03/26/2019 DATE AND TIME SEEN: On 03/26/2019 at 0705 hours. SUBJECTIVE: Mr. Hughes is lying quietly in bed. He has his CPAP off. He has just finished discussion with Dr. Martin in regards with his rehab. OBJECTIVE: His vital signs, temperature 97.2 degrees, blood pressure 115/48, heart rate 65, respirations 20, he is on 3 liters nasal cannula. Last recorded saturation 100%. He has had 770 input, he has had 200 output to void with need for dialysis today. LABORATORY DATA: Sodium 136, potassium 5.3, chloride 91, CO2 of 25, BUN 87, creatinine 9.2, glucose is 231. His anion gap is 20, calcium 9.8, phosphorus 6.5, albumin 3.8 with a previous hemoglobin 8.7. PHYSICAL EXAMINATION: General: This is a 78-year-old white male resting quietly in bed. He appears chronically ill, no acute distress. Skin: Warm and dry. HEENT: Normocephalic, atraumatic. Conjunctiva is pale pink. He has REJI. Mucous membranes are moist. Neck: Supple. Trachea midline. No JVD. Cardiovascular: Regular rate and rhythm. He is without murmur or gallop. Lungs: Clear to auscultation bilaterally. Equal excursion on O2. Abdomen: Large, round, soft, nontender. Positive bowel sounds. Genitourinary: Not inspected. Minimal void with dialysis assist. Extremities: Patient has a Telfa pad to his right knee. No lower extremity edema. The edema to the right hip has improved. SCD remains in place to the left. Neurological: Alert and oriented x3. ASSESSMENT AND PLAN: 1. Chronic kidney disease stage 5D. The patient is need of dialysis this morning. He is to be placed on a 2-potassium bath and dialyzed for 3-1/2 hours. We will attempt to pull patient to his outpatient dry weight. 2. Electrolytes and acid-base balance with correction on dialysis. 3. Anemia. This remains low but stable. 4. Right knee arthroscopy per Dr. Aleman. The patient is postoperative day number 3. 5. He is not on any heparin at this time secondary to him staying in bed. At this time, we will start heparin 5000 units subcutaneously twice daily. We will check a PTT in the morning. I would like to thank you for allowing us to follow with this patient. Dictated by JANNA Goldsmith for Frank Martin MD Face to face encounter, data reviewed, discussed with Tapan Keen on 03/26/19. I agree with the above assessment and plan of care. cc: JANNA Goldsmith MD Richard S. Sharp, MD [facility]
[2019-03-26] MEDS: ASPIRIN PO SCH (17:51)
[2019-03-26] MEDS: ZOCOR PO SCH (17:51)
[2019-03-26] MEDS: TENORMIN PO SCH (17:51)
[2019-03-26] MEDS: PATIENT'S OWN MED PO SCH (17:52)
[2019-03-26 17:56] VITALS: BP 117/50
--- NOTE | 2019-03-27 11:08 | DISCHARGE SUMMARY ---
ADMISSION DATE: 03/23/2019 DISCHARGE DATE: 03/26/2019 DISCHARGE DIAGNOSES: 1. Right knee arthroscopy. 2. Postoperative pain with lethargy. DISCHARGE MEDICINE: See discharge medication list. DISPOSITION: The patient is discharged home with outpatient physical therapy. Instructed to return for any signs or symptoms of infection or deep venous thrombosis instructed. Going to see Dr. Aleman next or Saturday. BRIEF HOSPITAL COURSE: The patient underwent a knee arthroscopy on Saturday. Postoperatively, he was in substantial pain at dialysis next day, so we decided to keep him overnight. He continued to be lethargic and made minimal progress with physical therapy. He was discontinued off his narcotic pain medicine and continued to be aggressive with physical therapy. At discharge, he was able to get up with a walker and walk a few steps, although not as stable as possible, although the family wished to have him discharged. I do think part of it is lethargy and part of it is possible hypoxia as he has had some diminished O2 saturation. When he is sitting, he has no O2 saturation problems on 3 liters, but when he is standing, he needs oxygen to move. I think this will improve with physical activity. We will send him home with oxygen as well. cc: Bo Aleman MD
== END 2019-03-26 19:18 | disposition home or self-care (01) ==
LOC: OR 06:53 → 4N 06:53
PROVIDERS: ADMIT Orthopaedic Surgery; ATTEND Orthopaedic Surgery

== ENCOUNTER 2019-04-03 12:20 | Inpatient (IN) ==
[2019-04-03] MEDS ORDERED: DUONEB (A & A) ONE (12:22)
[2019-04-03] MEDS ORDERED: SOLU-MEDROL IV ONE (12:39)
[2019-04-03] MEDS ORDERED: DUONEB (A & A) INH ONE (12:40)
[2019-04-03] MEDS ORDERED: LOVENOX 1 MG/KG SUBQ ONE ×2 (13:00→13:17)
--- NOTE | 2019-04-03 13:02 | Diag Imaging Result Doc PS360 ---
EXAM: CHEST-PORTABLE 04/03/2019 HISTORY: short of breath TECHNIQUE: AP portable upright at 1249 COMMENT: There is interstitial and alveolar pulmonary edema. This was not the case on 03/26/2019. IMPRESSION: Pulmonary edema. Electronically signed by Luis Fernando Reyna 04/03/2019 1:00 PM
[2019-04-03] MEDS ORDERED: MORPHINE IV ONE ×2 (13:06→16:17)
[2019-04-03] MEDS ORDERED: ATIVAN IV ONE (13:07)
[2019-04-03 13:10] LABS: ALLEN TEST YES; BE -2.5 mmoll (-3.0-3.0); BLOOD TYPE ARTERIAL; HCO3-(ACT) 22.9 mmoll (20.0-26.0); METHB 0.3 % (0.0-1.5); O2(CT) 12.8 mL/dL (15.0-23.0); O2HB 92.1 % (95.0-99.0); PCO2(98.6) 49 mmHg (35-45); PO2(98.6) 69 mmHg (60-100); SAMPLE BLOOD; SAO2 93.1 % (95.0-100.0); THB 9.8 g/dL (11.5-17.4)
[2019-04-03 13:11] LABS: MODALITY VENTIMASK
[2019-04-03] MEDS ORDERED: LASIX IV ONE (13:17)
[2019-04-03 13:29] LABS: ALB/GLOB RATIO 1.2; CALCIUM 9.4 mg/dL (8.8-10.2); CREATININE 4.9 mg/dL (0.7-1.2); POTASSIUM 4.4 mmol/L (3.5-5.1); TOTAL BILIRUBIN 0.28 mg/dL (0.20-1.00); TOTAL PROTEIN 7.3 g/dL (6.3-8.3)
[2019-04-03] MEDS ORDERED: LOVENOX SUBQ ONE (13:30)
[2019-04-03 13:32] LABS: BASO# 0.05 X1000 (0.0-0.2); BASO% 0.3 % (0.0-0.8); EOS% 0.7 % (0.0-10.0); HEMATOCRIT 29.6 % (42.0-52.0); IMM GRAN# 0.13 X1000 (0.0-0.04); IMM GRAN% 0.9 % (0.0-0.5); LYMPH# 1.43 X1000 (1.2-3.4); LYMPH% 9.9 % (20.5-51.1); MCH 33.7 PG (27-31); MCHC 30.4 g/dL (33-37); MCV 110.9 FL (81-99); MONO# 0.23 X1000 (0.11-0.59); MONO% 1.6 % (1.7-9.3); MPV 10.7 FL (7.4-10.4); NEUT% 86.6 % (42.2-75.2); PLT 472 X1000 (130-400); RBC 2.67 XMIL (4.7-6.1); RDW 15.8 % (11.5-14.5); WBC 14.44 X1000 (4.8-10.8)
[2019-04-03 14:17] LABS: INR 1.03; PROTIME 13.6 Seconds (11.0-16.0); PTT 24.4 Seconds (22.3-41.8)
[2019-04-03 14:19] LABS: MAGNESIUM 2.1 mg/dL (1.5-2.7)
--- NOTE | 2019-04-03 14:19 | EKG Report ---
Test Performed on : 04/03/2019 1:46:42 PM Test Reason : SOB Blood Pressure : / mmHG Vent. Rate : 088 BPM Atrial Rate : 088 BPM P-R Int : 128 ms QRS Dur : 104 ms QT Int : 428 ms P-R-T Axes : 033 077 -16 degrees QTc Int : 517 ms Normal sinus rhythm. with sinus arrhythmia. Possible Left atrial enlargement Marked ST abnormality, possible inferolateral subendocardial injury Prolonged QT Abnormal ECG When compared with ECG of 23-MAR-2019 07:28, Sinus rhythm. has replaced Electronic atrial pacemaker ST now depressed in Lateral leads Nonspecific T wave abnormality now evident in Inferior leads QT has lengthened Unconfirmed Result
[2019-04-03 14:59] LABS: BANDS 1 % (0-1); LYMPHS 8 % (21-51); SEGS 91 % (42-75)
--- NOTE | 2019-04-03 15:04 | Diag Imaging Result Doc PS360 ---
EXAM: LUNG SCAN / VQ 04/03/2019 HISTORY: dyspnea TECHNIQUE: 31 mCi of technetium 99m DTPA aerosol for the ventilation portion of the study and 6.2 mCi of technetium 99m MAA for the perfusion portion. COMMENT: There is no evidence of ventilation/perfusion mismatch. There are no perfusion defects. IMPRESSION: Normal study. Electronically signed by Luis Fernando Reyna 04/03/2019 3:01 PM
[2019-04-03 15:11] LABS: CK INDEX 2.6 (0.0-2.5); CK-MB 6.5 ng/mL (0.0-5.0)
[2019-04-03 15:40] LABS: URINE SOURCE CLEAN CATCH
[2019-04-03 15:44] LABS: BILIRUBIN URINE NEGATIVE (NEGATIVE); BLOOD URINE SMALL (NEGATIVE); COLOR YELLOW; GLUCOSE URINE 500 mg/dL (NEGATIVE); KETONE URINE TRACE mg/dL (NEGATIVE); LEUKOCYTES URINE NEGATIVE (NEGATIVE); NITRITE URINE NEGATIVE (NEGATIVE); PH URINE 6.5; PROTEIN URINE 300 mg/dL (NEGATIVE); SP GRAVITY URINE 1.011; TURBIDITY URINE CLEAR (CLEAR); UR EPITHELIAL CELLS <10 /HPF (<10); URINE BACTERIA NEGATIVE /HPF; URINE RBC <10 /HPF (<10); URINE WBC <10 /HPF (<10); UROBILINOGEN URINE NORMAL (NORMAL)
--- NOTE | 2019-04-03 16:08 | Diag Imaging Result Doc PS360 ---
EXAM: CT THORAX W/O CONTRAST 04/03/2019 HISTORY: hypoxia, shortness of breath TECHNIQUE: This exam was performed using automated exposure control, adjustment of mA or kV according to patient size, and/or use of iterative reconstruction technique. COMMENT: There is patchy groundglass opacity throughout the lungs. Denser alveolar consolidation is present in the lower lobes particularly the left lower lobe. There are bilateral pleural effusions. There are some nonspecific prevascular and paratracheal nodes. There are calcified nodes in the left hilum. There is extensive coronary calcification. There are pacemaker leads in the right atrium and ventricle. The regional skeleton is intact. There are no previous studies available for comparison. IMPRESSION: Pulmonary edema plus minus pneumonia with bilateral pleural effusions. Electronically signed by Luis Fernando Reyna 04/03/2019 4:06 PM
[2019-04-03] MEDS ORDERED: NITROGLYCERIN TOP ONE (16:11)
[2019-04-03] MEDS ORDERED: ZOFRAN IV ONE (16:18)
[2019-04-03] MEDS ORDERED: ROCEPHIN 1 GM in NS 50 ML IV ONE (16:27)
--- NOTE | 2019-04-03 17:09 | EKG Report ---
Test Performed on : 04/03/2019 4:57:50 PM Test Reason : elevated troponin Blood Pressure : / mmHG Vent. Rate : 084 BPM Atrial Rate : 084 BPM P-R Int : 158 ms QRS Dur : 104 ms QT Int : 432 ms P-R-T Axes : 046 090 024 degrees QTc Int : 510 ms Normal sinus rhythm. Possible Left atrial enlargement Rightward axis Marked ST abnormality, possible inferolateral subendocardial injury Prolonged QT Abnormal ECG When compared with ECG of 03-APR-2019 13:46, (Unconfirmed) No significant change was found Unconfirmed Result
[2019-04-03] MEDS ORDERED: HEPARIN IV PRN (17:10)
[2019-04-03] MEDS ORDERED: NS 2,000 ML MISC PRN (17:10)
[2019-04-03] MEDS ORDERED: ULTRAM PO PRN (18:20)
[2019-04-03] MEDS: PRINIVIL PO SCH (22:03)
[2019-04-03] MEDS: LASIX PO SCH (22:03)
[2019-04-03] MEDS: HUMULIN R SUBQ SCH (22:03)
[2019-04-03 22:06] LABS: CK-MB 43.1 ng/mL (0.0-5.0)
[2019-04-03] MEDS: ZOCOR PO SCH (22:06)
--- NOTE | 2019-04-03 22:18 | HISTORY AND PHYSICAL ---
CHIEF COMPLAINT: Shortness of breath. This is a 78-year-old gentleman with CHF, end-stage renal. He came in today after being seen in [facility] for an elective left heart catheterization. I think he was sent there per Dr. Rivas for EKG changes. They ended up not doing a left heart catheterization today because his hemoglobin was low. On the it was 7.6 and 24 and then 7.6 on the . He had just had a TKA so I do not know. I think he probably just anemic post TKA. In any case, so he was not done today. On the way home patient starts to develop chest pain, pressure, shortness of breath, nausea. He came in for evaluation. He was very tachypneic. He was hypoxic. Initial concerns were that this was a PE. He had a V/Q scan which was negative and he had a chest CT which presumably was without contrast showed pulmonary edema minus pneumonia with bilateral pleural effusions so acute CHF, volume overload. His initial troponin was positive at 1346 with an MB of 6.5 and a CK of 248, certainly possible this was a non STEMI with acute heart failure but we will continue to monitor. The inspector screen printing wants the hemoglobin and hematocrit worked up a little bit better. His last hemoglobin and hematocrit in 2019 was 11 and 38 but the ones beginning in March were 8 and 27 with macrocytic indices. There has been no bleeding or anything like that at home but we will see how things go. In any case, the patient admitted for acute respiratory failure, possible non STEMI, acute volume overload. Dr. Martin has already evaluated the patient and is going to perform dialysis tonight for fluid removal. The patient admitted for treatment. PAST MEDICAL HISTORY: 1. Hypertension. 2. Type 2 diabetes. 3. CAD status post PCI. 4. End-stage renal disease. PAST SURGICAL HISTORY: He has had the TKA, he has had stent placement. SOCIAL HISTORY: No tobacco. No ethanol. ALLERGIES: He is allergic to IV dye. MEDICATIONS: Zocor 80, aspirin 81, Celexa 40, folic acid daily, Lasix 80 b.i.d., Humalog as needed, Lantus 30 daily, Mirapex 0.25 daily, Prilosec 40 daily, PhosLo 667 t.i.d., lisinopril 20 b.i.d., Toprol-XL 25 daily, Ultram. PHYSICAL EXAM: Blood pressure is 158/74, heart rate is 79, respiratory rate 26, temperature was 98 degrees. GENERAL: Well-developed male in no distress. I think much earlier he was in pretty significant distress. Eyes, pupils equal, round, reactive to light. Extraocular movements were intact, ear nose and throat he had moist mucous membranes. Neck was supple. CARDIOVASCULAR: Was regular rate and rhythm. No murmurs, gallops, or rubs. PULMONARY: Bilateral breath sounds clear to auscultation. GI: Was soft, nontender, nondistended. Bowel sounds are positive. LABORATORY DATA: His troponin is 1346 but he has a creatinine of 4.9, GFR of 12 so nonspecific but positive and his CK-MB and index are all positive too. His EKG shows some ST changes but nothing new. White count 14, hemoglobin and hematocrit 9, 29, platelets 472,000. EKG nonspecific . ASSESSMENT: 78-year-old male with respiratory failure, pulmonary edema, volume overload, possible pneumonia and elevated troponin which could be a demand mismatch or a true non ST segment elevation myocardial infarction. 1. Acute hypoxic respiratory failure. We will continue BiPAP, probably go ahead and get a pulmonary evaluation just to weigh in on if they think he has pneumonia which I do not think he does but he does have a white count so we will cover him with antibiotics. 2. Volume overload. Dr. Martin is going to dialyze him tonight. Repeat chest x-ray tomorrow, evaluate for heart failure. 3. Elevated troponin. It certainly could be an acute congestive heart failure/pulmonary edema, non ST-elevation myocardial infarction. EKG does not show any acute changes but we will see how things look and get a couple more sets and cardiology has been consulted. I talked to Dr. Suazo. I thought he was still color consultant and Dr. Ivan will evaluate him. Will go ahead and get an echocardiogram and make sure he is doing okay. 4. Diabetes. Follow blood sugars closely. Will continue to monitor closely. I would err on the side of continuing anticoagulation but he got Lovenox so we will start heparin maybe in 12 hours or in the morning, will see how things go and at the discretion of Cardiology. Critical care time 35 minutes. Discussion with Cardiology, positive pressure ventilation, acute respiratory failure. cc: Jason Monk MD
[2019-04-03] MEDS: DUONEB (A & A) INH SCH (23:33)
[2019-04-04 02:33] LABS: CK INDEX 8.5 (0.0-2.5); CK-MB 49.36 ng/mL (0.0-5.0)
[2019-04-04] MEDS: DUONEB (A & A) INH SCH ×4 (03:32→22:25)
[2019-04-04 05:36] LABS: BASO# 0.01 X1000 (0.0-0.2); BASO% 0.1 % (0.0-0.8); HEMATOCRIT 27.1 % (42.0-52.0); HEMOGLOBIN 8.3 g/dL (14.0-18.0); IMM GRAN# 0.07 X1000 (0.0-0.04); IMM GRAN% 0.4 % (0.0-0.5); LYMPH# 0.37 X1000 (1.2-3.4); LYMPH% 2.1 % (20.5-51.1); MCH 33.6 PG (27-31); MCHC 30.6 g/dL (33-37); MCV 109.7 FL (81-99); MONO# 0.78 X1000 (0.11-0.59); MONO% 4.4 % (1.7-9.3); MPV 10.8 FL (7.4-10.4); NEUT# 16.57 X1000 (1.4-6.5); PLT 412 X1000 (130-400); RBC 2.47 XMIL (4.7-6.1); RDW 15.4 % (11.5-14.5); RETIC% 3.75 % (0.8-2.1); RETIC-HE 31.6 PG (28.2-36.6)
[2019-04-04] MEDS: HUMULIN R SUBQ SCH (06:10)
[2019-04-04] MEDS: PRILOSEC PO SCH (06:16)
[2019-04-04 06:21] LABS: FERRITIN 1666 ng/mL (30-400)
[2019-04-04 06:30] LABS: CALCIUM 9.5 mg/dL (8.8-10.2); CREATININE 6.1 mg/dL (0.7-1.2); POTASSIUM 5.2 mmol/L (3.5-5.1)
--- NOTE | 2019-04-04 07:14 | Diag Imaging Result Doc PS360 ---
EXAM: CHEST-PORTABLE 04/04/2019 HISTORY: dyspnea TECHNIQUE: AP portable at 0600 COMMENT: There is interstitial and some perihilar alveolar opacity. There is mild cardiomegaly. Compared to 04/03/2019 the parahilar edema in the left upper lobe is worse but the Vandana B lines on the right have diminished. IMPRESSION: Pulmonary edema and cardiomegaly. Electronically signed by Luis Fernando Reyna 04/04/2019 7:11 AM
[2019-04-04 07:37] LABS: BANDS 2 % (0-1); LYMPHS 2 % (21-51); SEGS 96 % (42-75)
[2019-04-04] MEDS: HUMALOG SUBQ SCH ×4 (07:58→21:23)
[2019-04-04] MEDS: PHOSLO PO SCH ×3 (08:05→17:55)
[2019-04-04] MEDS: CELEXA PO SCH (08:06)
[2019-04-04] MEDS: LASIX PO SCH (08:07)
[2019-04-04] MEDS: NEPHRO-VITE PO SCH (08:08)
[2019-04-04] MEDS: PRINIVIL PO SCH ×2 (08:08→20:46)
[2019-04-04] MEDS: ASPIRIN PO SCH (08:08)
[2019-04-04] MEDS: MIRAPEX PO SCH (08:12)
[2019-04-04] MEDS ORDERED: HEPARIN IV PRN (09:06)
[2019-04-04] MEDS ORDERED: NS 2,000 ML MISC PRN (09:06)
[2019-04-04] MEDS ORDERED: TIGHT: 0.2 ML/HR FOR DIALYSIS MISC PRN (09:06)
[2019-04-04 10:44] LABS: CK INDEX 6.9 (0.0-2.5); CK-MB 43.38 ng/mL (0.0-5.0)
[2019-04-04] MEDS ORDERED: XYLOCAINE-MPF 1% INJ ONE (11:04)
--- NOTE | 2019-04-04 15:15 | CARDIOLOGY CONSULTATION ---
DATE: 04/04/2019 CONSULTATION REQUESTED BY: The hospitalist service. PRIMARY REAL ESTATE LEGAL ASSISTANT: Dr. Rivas. SOCIAL INSURANCE SPECIALIST: Dr. Martin. CHIEF COMPLAINT: Shortness of breath. HISTORY: Mr. Hughes is a 78-year-old male who yesterday was supposed to undergo heart catheterization in [place]. However, the patient was found to be anemic and the fuel cell designer declined to do the procedure and instructed him to go back to his doctors in [place]. On his way back home, the patient developed significant onset of dyspnea. This got worse, when he got home the breathlessness was much worse and then they called EMS. He was brought to the ER about 12:40 p.m. They did a chest x-ray that shows evidently acute pulmonary edema. For some reason, they did a ventilation perfusion scan that is normal. EKG shows sinus rhythm with diffuse ST depression in the lateral leads with some sort of ST elevation in AVR. They did a number of blood tests including CPKs, initially was 248 then has crept up to 582, CK-MB fraction initially was 6.5, crept up to 49.36. High sensitivity troponin was 1346 on first test then went up to 1707 9 ng/L. Patient initially upon presentation was deemed to be in heart failure and he has been dialyzed. This morning he is feeling a little better. His EKG this morning shows a little less pronounced ST changes. He is not having any chest pain. Of note, this patient recently underwent arthroscopic knee surgery on March 23 and he was discharged home on March 26. He really did not have any symptoms or complaints during that admission. On the following day March 27 he had a scheduled visit with Dr. Rivas for routine checkup. At that time, Dr. Rivas noted that his EKG had changed and there was ST-segment depression in the lateral leads and he did recommend to pursue heart catheterization for definitive diagnosis due to the concern that his coronary status might have changed dramatically in the preceding few days. PAST MEDICAL HISTORY: Is positive for severe coronary heart disease. Back in 2002 he developed chest pains, coronary syndrome. He was taken to [facility]. Dr. Shankar Bonner on 06/30/2002 deployed a stent to the mid right coronary artery and then to the mid LAD, achieving good results. In 2007 Dr. Iva Delgado on 09/30/2007 performed a stent to the distal right coronary artery using a 2.5 x 8 mm TAXUS stent. The patient has not had any further issues with chest pain or dyspnea since then. The patient was found to have sick sinus syndrome and eventually received a pacemaker. He has hyperlipidemia, diabetes mellitus type 2. Over the course of the years, he has developed progressive renal failure. He was initiated on peritoneal dialysis. Unfortunately, he suffered rupture diverticulitis with peritonitis and he had to be switched over to hemodialysis and he does have a graft contracted in the left upper extremity for that purpose. He has also been treated for hyperlipidemia. SURGICAL HISTORY: Includes the recent arthroscopic surgery. He has had a pacemaker implanted on 06/18/[address] [place] [id number] and is working fine. He has appendectomy, hip replacement, knee replacement, tonsillectomy. SOCIAL HISTORY: He is . He is retired. He has children. Not a smoker. FAMILY HISTORY: Positive for heart disease in his father. HOME MEDICATIONS: At this time aspirin 81 daily, PhosLo 3 tablets 3 times a day, Celexa 40 mg daily, furosemide 80 twice a day, Lantus Insulin 30-35 Units SC at bedtime and lispro Short acting 30-35 Units SC 4 times a day, lisinopril 20 twice a day, lysine 500 daily, metoprolol 25 daily, omeprazole 40 mg daily, Mirapex 0.25 daily, Zocor 80 mg at bedtime, tramadol 50 mg every 4 hours. ALLERGIES: He is allergic to iodine contrast it gives him hives. REVIEW OF SYSTEMS: He had been remarkably minimally symptomatic since his knee surgery until just a sudden onset of shortness of breath yesterday. PHYSICAL EXAMINATION: Vital signs: Blood pressure 150/58, temperature 97.6 degrees, pulse 79, respirations 20. Patient is awake. He is somewhat struggling to breathe. HEENT: Unremarkable. Chest: Bilateral rhonchi and end expiratory wheezes. Heart: Sounds regular and rhythmic. No gallop or murmur. Abdomen: Nontender, soft. Extremities: Showed shunt in the left arm that is oozing a little bit. Lower extremities showed fairly good pulses. Neurological: Nonfocal. Moves 4 extremities. BLOOD WORK: Hemoglobin yesterday at the time of presentation to the ER was 9.0, subsequently 8.3 g, hematocrit initially 29.6, subsequently 27.1, initial white count 14,440 subsequently 70,800. Sodium 135, potassium 5.2, BUN 59, creatinine 6.1, his ferritin 1666 ng/mL. IMPRESSION: 1. Patient presented with acute pulmonary edema/cardiogenic origin to the emergency room 04/03/2019. 2. Acute non ST elevation myocardial infarction. 3. History of severe coronary heart disease, previous stents to right coronary artery and to left anterior descending in 2002 and then to the right coronary artery in 2007. 4. History of sick sinus syndrome status post automatic implantation in 2013. 5. End-stage renal disease on hemodialysis. 6. Hypertension. 7. Hyperlipidemia . 8. Diabetes mellitus type 2. RECOMMENDATION: At this time we will try to remove fluid through hemodialysis. I discussed that with Dr. Martin. I am going to put him on isosorbide dinitrate and hydralazine to try to lower his preload and afterload. The patient may ultimately require a followup heart catheterization. Evidently he has developed progression of disease. I suspect that he had an event probably asymptomatic around the time of his knee surgery and then it just became evident yesterday. We will follow the patient. His condition is guarded. cc: Froilan Rossi MD [facility]
[2019-04-04] MEDS: APRESOLINE PO SCH ×2 (15:36→17:55)
[2019-04-04] MEDS: ISORDIL PO SCH ×2 (15:36→17:55)
--- NOTE | 2019-04-04 15:50 | PROGRESS NOTE ---
DATE: 04/04/2019 OBJECTIVE: Blood pressure 150/98, heart rate of 82, respiratory rate 24, temperature 97.6 degrees, 99 on a partial non-rebreather. Cardiovascular: Regular rate and rhythm. Pulmonary: Bilateral breath sounds clear to auscultation anteriorly. GI: Soft, nontender, nondistended. Bowel sounds are positive. LABORATORY DATA: White count is 17, hemoglobin and hematocrit 8 and 27, platelets of 412,000. Sodium is 135, potassium 5.2, glucose is 425, BUN and creatinine 59 and 6.1. His iron is 20. His iron sat is 11. His troponin is up to 1665 with a peak of 1707. These are actually increasing, but the MBs I think have decreased. The highest CK was 8.5, so it is trending downwards. It went from 6.5 to 49. I think he had a non-STEMI. PROBLEM LIST: 1. Acute hypoxic respiratory failure due to volume overload. We will continue to monitor. Cardiology feels this is a non-STEMI. I appreciate Dr. Rossi's assessment. Plan will be to stabilize and then I guess get him back to [facility] where they can complete the cardiac catheterization once he is a little bit more stabilized. Dr. Rossi has added BiDil therapy, Imdur, and hydralazine. We will continue diuresis and ultrafiltration to get fluid off. 2. Anemia, which is iron deficiency anemia. His B12 and all those numbers look normal. I am going to go ahead and start IV iron and regular iron, p.o. iron. We are waiting on a Hemoccult, but he reports no bleeding, but he does report being constipated. I do not think he has pneumonia. I think his white count is reactive. We will cover him with antibiotics in the meantime, not wanting to miss any other things. Repeat his chest x-ray and get a procalcitonin level. Appreciate residential sales consultant's help. cc: Jason Monk MD
--- NOTE | 2019-04-04 15:57 | NEPHROLOGY CONSULTATION ---
DATE: 04/03/2019 REASON FOR CONSULTATION: Acute shortness of breath. HISTORY OF PRESENT ILLNESS: Mr. Hughes is a 78-year-old man who is well known to us. He has coronary artery disease, diabetes, hypertension, CKD 5d. He is currently receiving dialysis every Saturday, and Saturday and had his normal treatment on 04/03/2019. He had right knee arthroscopy approximately 10 days ago and had slow recovery from that procedure primarily because of pain in the knee but he denied any chest pain through the procedure or shortness of breath. He saw Dr. Rivas as an outpatient, who was very concerned about changes on his EKG and he arranged for elective left heart catheterization. On the 04/03/2019 in [place]. He was sent home without a procedure, being told that his care needed to focus on other issues. On the way home he had worsening shortness of breath. No real chest pain. No nausea or vomiting. His symptoms worsened progressively such that by the time he reached home he was markedly ill and they called for emergency services and had him transported to the hospital. His evaluation in the emergency room included chest x-ray, V/Q scan, CT chest without contrast. No pulmonary embolus. Chest x-ray and CT both supported pulmonary edema. At the time of my arrival around 4 p.m., he was markedly ill with respiratory distress and increased work of breathing, audible wheezing, etc. With the addition of transdermal nitroglycerin and BiPAP, he had rapid improvement in his O2 saturation from 89 to 99 and improvement in respiratory rate and work of breathing. I discussed the case directly with Dr. Rivas as well as Dr. Monk. He was taken for dialysis on the evening of the 04/03/2019 where we removed 2 L ultrafiltration over a two-hour treatment. Improvement in his symptoms but no resolution. PAST MEDICAL HISTORY: As above. MEDICATIONS: Include Zocor, aspirin, Celexa, furosemide, Humalog, Lantus, Mirapex, Prilosec, PhosLo, lisinopril, Toprol, Ultram. ALLERGIES: Iodinated contrast. SOCIAL HISTORY AND REVIEW OF SYSTEMS: Noncontributory. He lives with his . No alcohol, tobacco, etc. PHYSICAL EXAMINATION: Vital Signs: Blood pressure 161/90, heart rate 91, respirations 22, afebrile. Generally: He is markedly ill with increased work of breathing and anxiety. Skin: Warm and dry. No cyanosis. HEENT: Conjunctivae are pink. Pupils are equal. Oropharynx is moist. Neck: Neck veins are difficult to read. Trachea is midline. Heart: Regular and tachycardic. Lungs: Have diffuse wheezes and crackles. Abdomen: Soft, nontender. Bowel sounds are present. Organomegaly not present. Extremities: Trace edema. No clubbing or cyanosis. Neurologic: Nonfocal. IMPRESSION: Acute pulmonary edema. Treatment that was rendered is as above. Will consider dialysis again on Saturday. No medication changes are required from the nephrology perspective and I will defer to Cardiology. I will not treat his blood pressure more aggressively until we have achieved adequate ultrafiltration. cc: Frank Martin MD
--- NOTE | 2019-04-04 16:01 | NEPHROLOGY PROGRESS NOTE ---
DATE: 04/04/2019 SUBJECTIVE: He is on closed face mask this morning. He did not tolerate his BiPAP overnight. Still somewhat short of breath. Still denies chest pain. OBJECTIVE: Vital Signs: Blood pressure 150/58, heart rate 79, respirations 20, afebrile. General: Mild increased work of breathing. Skin: Warm and dry. Eyes: Conjunctivae are pink. Neck: Neck veins are difficult to appreciate. Heart: Regular with a gallop. Lungs: Equal with wheezes and crackles diffusely. Improved. Abdomen: Benign. Extremities: No edema. IMPRESSION: 1. Acute pulmonary edema related to an ST myocardial infarction. I discussed the case directly with Dr. Rossi today. Echocardiogram demonstrates left ventricular ejection fraction approximately 45% to 50% with apical hypokinesis. He will have his routine dialysis today using a 2 K bath with a goal of 3 to 4 L. We will dialyze him for an extended time of perhaps five to six hours in order to achieve ultrafiltration targets. Dr. Rossi has titrated his blood pressure regimen, so we will make no further changes today. 2. Anemia is moderate. Hemoglobin is 8.3 today. This does not meet transfusion criteria for Nephrology but if the primary team or Cardiology desires, we will transfuse during dialysis. cc: Frank Martin MD
[2019-04-04] MEDS: LANTUS INSULIN SUBQ SCH (17:55)
[2019-04-04] MEDS: LOKELMA POWDER PACKET PO SCH (17:56)
[2019-04-04] MEDS: LASIX IV SCH (17:56)
--- NOTE | 2019-04-04 18:00 | EKG Report ---
Test Performed on : 04/04/2019 09:12:53 AM Test Reason : acute IN Blood Pressure : / mmHG Vent. Rate : 073 BPM Atrial Rate : 073 BPM P-R Int : 162 ms QRS Dur : 102 ms QT Int : 506 ms P-R-T Axes : 044 081 121 degrees QTc Int : 557 ms Critical Test Result: Long QTc Sinus rhythm. with premature atrial complexes. Possible Left atrial enlargement ST depression, consider subendocardial injury Nonspecific T wave abnormality Prolonged QT Abnormal ECG When compared with ECG of 03-APR-2019 16:57, (Unconfirmed) premature atrial complexes. are now present Nonspecific T wave abnormality no longer evident in Inferior leads T wave inversion now evident in Lateral leads QT has lengthened Confirmed by Mike PEDRAZA, Mao Kelley ([id number]) on 04/08/2019 10:45:05 AM
[2019-04-04 18:30] LABS: CK INDEX 6.5 (0.0-2.5); CK-MB 40.11 ng/mL (0.0-5.0)
[2019-04-04] MEDS: ROCEPHIN 1 GM in NS 50 ML IV SCH (19:48)
[2019-04-04] MEDS: ZOCOR PO SCH (20:46)
[2019-04-05 02:50] LABS: CK INDEX 4.6 (0.0-2.5); CK-MB 24.9 ng/mL (0.0-5.0)
[2019-04-05] MEDS: DUONEB (A & A) INH SCH ×4 (02:50→22:24)
[2019-04-05] MEDS: LASIX IV SCH ×2 (02:59→18:47)
[2019-04-05] MEDS ORDERED: ASPIRIN PO ONE (04:25)
[2019-04-05 04:26] LABS: ALLEN TEST YES; BE 0.9 mmoll (-3.0-3.0); BLOOD TYPE ARTERIAL; HCO3-(ACT) 25.6 mmoll (20.0-26.0); METHB 0.3 % (0.0-1.5); O2(CT) 12.2 mL/dL (15.0-23.0); O2HB 96.9 % (95.0-99.0); PCO2(98.6) 38 mmHg (35-45); PO2(98.6) 168 mmHg (60-100); SAMPLE BLOOD; SAO2 97.7 % (95.0-100.0); THB 8.7 g/dL (11.5-17.4); pH(98.6) 7.43 (7.35-7.45)
[2019-04-05 04:27] LABS: MODALITY CANNULA
[2019-04-05] MEDS ORDERED: NITROGLYCERIN LINGUAL SPRAY SL PRN (04:28)
[2019-04-05] MEDS ORDERED: MORPHINE ONE (04:35)
[2019-04-05] MEDS ORDERED: ASPIRIN ONE (04:35)
--- NOTE | 2019-04-05 04:37 | EKG Report ---
Test Performed on : 04/05/2019 04:11:44 AM Test Reason : Back pain with radiation to the Left arm. Blood Pressure : / mmHG Vent. Rate : 097 BPM Atrial Rate : 097 BPM P-R Int : 156 ms QRS Dur : 102 ms QT Int : 350 ms P-R-T Axes : 040 088 143 degrees QTc Int : 444 ms Critical Test Result: STEMI Normal sinus rhythm. Possible Left atrial enlargement ST elevation, consider anterior injury or acute infarct ACUTE SC / STEMI Abnormal ECG When compared with ECG of 04-APR-2019 09:12, (Unconfirmed) premature atrial complexes. are no longer present Nonspecific T wave abnormality no longer evident in Anterior leads QT has shortened Confirmed by Mike PEDRAZA, Mao Kelley ([id number]) on 04/05/2019 10:26:35 PM
[2019-04-05] MEDS ORDERED: MORPHINE IV ONE (05:02)
[2019-04-05] MEDS: PRILOSEC PO SCH ×2 (05:51→08:19)
[2019-04-05] MEDS: HUMALOG SUBQ SCH ×4 (06:42→20:39)
--- NOTE | 2019-04-05 06:42 | EKG Report ---
Test Performed on : 04/05/2019 05:53:18 AM Test Reason : Acute MT Blood Pressure : / mmHG Vent. Rate : 084 BPM Atrial Rate : 084 BPM P-R Int : 156 ms QRS Dur : 106 ms QT Int : 402 ms P-R-T Axes : 053 075 087 degrees QTc Int : 475 ms Normal sinus rhythm. Possible Left atrial enlargement ST depression, consider subendocardial injury Nonspecific T wave abnormality Prolonged QT Abnormal ECG When compared with ECG of 05-APR-2019 04:11, (Unconfirmed) No significant change was found Confirmed by Mike PEDRAZA, Mao Kelley ([id number]) on 04/05/2019 10:26:38 PM
--- NOTE | 2019-04-05 07:19 | Diag Imaging Result Doc PS360 ---
EXAM: CHEST-PORTABLE 04/05/2019 HISTORY: dyspnea TECHNIQUE: AP portable at 0539 COMMENT: Compared to 04/04/2019 there has been clearing of the perihilar pulmonary edema. The heart size and pulmonary vascularity are also diminished. IMPRESSION: Improved pulmonary edema and cardiomegaly. Electronically signed by Luis Fernando Reyna 04/05/2019 7:16 AM
[2019-04-05 07:28] LABS: BASO# 0.01 X1000 (0.0-0.2); BASO% 0.1 % (0.0-0.8); EOS# 0.03 X1000 (0.0-0.7); EOS% 0.2 % (0.0-10.0); HEMATOCRIT 27.7 % (42.0-52.0); HEMOGLOBIN 8.5 g/dL (14.0-18.0); IMM GRAN# 0.02 X1000 (0.0-0.04); IMM GRAN% 0.2 % (0.0-0.5); LYMPH# 0.77 X1000 (1.2-3.4); LYMPH% 6.3 % (20.5-51.1); MCH 33.6 PG (27-31); MCHC 30.7 g/dL (33-37); MCV 109.5 FL (81-99); MONO# 0.71 X1000 (0.11-0.59); MONO% 5.8 % (1.7-9.3); MPV 10.6 FL (7.4-10.4); NEUT# 10.64 X1000 (1.4-6.5); NEUT% 87.4 % (42.2-75.2); PLT 432 X1000 (130-400); RBC 2.53 XMIL (4.7-6.1); RDW 15.7 % (11.5-14.5); WBC 12.18 X1000 (4.8-10.8)
[2019-04-05 07:55] LABS: CALCIUM 9.3 mg/dL (8.8-10.2); CREATININE 4.7 mg/dL (0.7-1.2); POTASSIUM 4.1 mmol/L (3.5-5.1)
--- NOTE | 2019-04-05 08:05 | ECHO REPORT ---
ORDER DATE: 04/04/2019 INTERPRETING PHYSICIAN: Dr. Rossi REQUESTING PHYSICIAN: CLINICAL INDICATIONS: This is a 78-year-old male with chest pain, myocardial infarction, end stage renal disease. M-MODE MEASUREMENTS: Right ventricle: cm. Left ventricle end diastole: 5.6 cm. Left ventricle end systole: 4.2 cm. Posterior wall: 0.9 cm. Interventricular septum: 1.0 cm. Left atrium: 5.2 cm. Aortic root: 3.3 cm. SUMMARY OF 2-DIMENSIONAL IMAGIN. Left ventricular function appears to be mildly impaired. There is impairment of the basal inferior wall as well as the apical anterior wall and the apical lateral wall of the left ventricle. Ejection fraction is estimated at 50% by computer tracing. 2. The left atrium is moderately to significantly enlarged. 3. The mitral valve showed moderately severe degree of regurgitation. 4. The pulse wave Doppler of mitral inflow shows "normal" E/A ratio. The ratio is 2.2 which is abnormally high. 5. The tissue Doppler of septal and lateral mitral annulus averages 12 cm. 6. Left atrial pressure is probably elevated. 7. Aortic valve shows sclerosis of the cusps without stenosis. Color flow mapping is unremarkable. 8. The tricuspid valve showed mild degree of regurgitation. 9. Pulmonic valve also showed mild degree of regurgitation. 10.Pulmonary pressure is estimated at 46 mmHg. 11.There is no pericardial effusion, mass or thrombus. 12.The inferior vena cava is at the upper limits of normal. Clinical correlation is recommended. cc: MD Jason Oviedo MD [facility]
[2019-04-05] MEDS: PHOSLO PO SCH ×3 (08:21→18:47)
[2019-04-05] MEDS: MIRAPEX PO SCH (08:22)
[2019-04-05] MEDS: CELEXA PO SCH (08:22)
[2019-04-05] MEDS: APRESOLINE PO SCH ×3 (08:23→18:47)
[2019-04-05] MEDS: ASPIRIN PO SCH (08:23)
[2019-04-05] MEDS: NEPHRO-VITE PO SCH (08:23)
[2019-04-05] MEDS: ISORDIL PO SCH ×3 (08:24→18:47)
[2019-04-05] MEDS: LOKELMA POWDER PACKET PO SCH ×3 (08:24→18:47)
[2019-04-05] MEDS: PRINIVIL PO SCH ×2 (08:24→20:40)
[2019-04-05] MEDS: LANTUS INSULIN SUBQ SCH (08:29)
[2019-04-05 09:04] LABS: LYMPHS 10 % (21-51); MONO 6 % (1-9); SEGS 84 % (42-75)
[2019-04-05 09:10] LABS: CK INDEX 4.4 (0.0-2.5); CK-MB 19.43 ng/mL (0.0-5.0)
[2019-04-05] MEDS ORDERED: HEPARIN 25,000 UNITS/D5W 25,000 UNIT/250 ML IV.SOLN IV SCH (09:15)
[2019-04-05] MEDS ORDERED: HEPARIN IV ONE (09:36)
--- NOTE | 2019-04-05 11:27 | CARDIOLOGY PROGRESS NOTE ---
DATE: 04/05/2019 CHIEF COMPLAINT: Chest discomfort, shortness of breath. SUBJECTIVE: Mr. Hughes is feeling better today. At about 4:30 in the morning, he notified his nurse that he was having pain in the upper back. Interestingly, he says that this pain has been going on for the past 10 years intermittently. The same pain happened on the day of his admission. He said as they were driving back from [place], he experienced the pain while they were pumping gas in his car. The pain went on until he was seen in the ER, and they gave him oxygen. It is a "cramping like spasm" in the upper back in between the shoulder blades. That has been going on for at least 10 years according to him. They did an EKG this morning at 4:30, and that showed some ST depression, more pronounced than the prior EKG and very similar to the EKG that he manifested or showed on the day of admission. We gave him morphine 3 mg, and he feels more relief now. His EKG subsequently done at 5:53 in the morning shows less pronounced ST depression but is still abnormal. His CPKs have risen up to a maximum of 628, and now they are going down. The one done this morning at 5:23 in the morning is 545, CKMB fraction peaked at midnight on 04/04/2019 at 49.36 and now is down to 24.9. His high sensitivity troponin, on the other hand, has risen from admission of 1346 to 2025. His chest x-ray this morning shows improved pulmonary edema. He is more comfortable. He is eating breakfast. OBJECTIVE: Blood pressure is 135/55, temperature 98.2, pulse 79, respirations 21. He is awake, alert, in no distress. HEENT is unremarkable. Chest shows better excursion at the bases. Lungs are clear. Heart sounds are regular and rhythmic. No gallop or murmur. His abdomen is soft, nontender. Extremities show good pulse. No peripheral edema. Neurologic: Follows commands. Moves all 4 extremities. DIAGNOSTIC DATA: Additional lab work is sodium 135, potassium 4.1, BUN is 50, creatinine 4.7. IMPRESSION: 1. The patient presented with acute pulmonary edema and chest discomfort with abnormal EKG, very consistent with acute coronary syndrome/non-ST myocardial infarction complicated by acute congestive heart failure. 2. History of coronary heart disease. He had stent in the right coronary artery and LAD in the past. 3. Sick sinus syndrome, status post dual chamber pacemaker. 4. End stage renal disease on hemodialysis. 5. Chronic anemia. The patient does have microcytic indices on his blood work; however, he is iron deficient with an iron in blood of 20 mcg/dL with a saturation of 11%. RECOMMENDATIONS: At this time, I have discussed with Dr. Martin. We will try to optimize his volume status by an additional session of dialysis today, and we will get him ready for transfer to [facility]. I am going to be calling the transfer center to make them aware of this patient's situation to have him ready to be transferred first thing in the morning with intention to go to the senior cytogenetics laboratory director. I do not think we need to delay any further the coronary intervention. At this time, he is on aspirin, nitroglycerin in the form of isosorbide dinitrate. I am going to put him on heparin weight based, and then we will take it from there. cc: Froilan Rossi MD
[2019-04-05] MEDS ORDERED: NS 2,000 ML MISC PRN (14:39)
[2019-04-05] MEDS ORDERED: LACTULOSE PO ONE (16:27)
[2019-04-05] MEDS ORDERED: PREDNISONE PO ONE (16:28)
[2019-04-05] MEDS ORDERED: FERRLECIT 125 MG in NS 100 ML IV ONE (16:29)
--- NOTE | 2019-04-05 16:58 | PROGRESS NOTE ---
DATE: 04/05/2019 SUBJECTIVE: Patient has no major complaints. No more chest pain. His breathing is a lot better. He seems better. OBJECTIVE: Vital signs: Blood pressure is 112/57, heart rate is 77, respiratory rate is 17, temperature 98.2 degrees, 95% on 4 L. Cardiovascular: Regular rate and rhythm. Pulmonary: Bilateral breath sounds. Clear to auscultation. GI: Soft, nontender, nondistended. Bowel sounds are positive. LABORATORY DATA: White count is 12, hemoglobin and hematocrit 8 and 27, platelets 432,000. Creatinine 4.7. Sugar is still high 294, 365. PROBLEM LIST: 1. [id number] myocardial infarction with acute pulmonary edema, congestive heart failure exacerbation. I agree he needs a left heart catheterization. We will go ahead and plan for premedicating him and then plan for transfer in the morning for left heart catheterization. He is on heparin. He is on aspirin, Imdur, hydralazine. 2. Anemia. That has been stable. He did drop a little bit, but it has stabilized otherwise. His workup does suggest iron deficiency or at least chronic inflammation. We will continue iron. 3. Disposition. I anticipate transfer tomorrow. 4. Pulmonary edema. He is going to get dialyzed again today to better evaluate, to optimize him prior to transfer. cc: Jason Monk MD
[2019-04-05] MEDS: HEPARIN 25,000 UNITS/D5W 25,000 UNIT/250 ML IV.SOLN IV SCH (18:55)
[2019-04-05] MEDS: HEPARIN IV PRN (18:57)
[2019-04-05] MEDS: ROCEPHIN 1 GM in NS 50 ML IV SCH (19:49)
[2019-04-05] MEDS: ZOCOR PO SCH (20:40)
[2019-04-06] MEDS: LASIX IV SCH (02:31)
[2019-04-06] MEDS: HEPARIN 25,000 UNITS/D5W 25,000 UNIT/250 ML IV.SOLN IV SCH (03:27)
[2019-04-06] MEDS: DUONEB (A & A) INH SCH (04:37)
[2019-04-06] MEDS: PRILOSEC PO SCH ×2 (05:46→06:27)
[2019-04-06] MEDS: HUMALOG SUBQ SCH (06:09)
--- NOTE | 2019-04-06 06:45 | EKG Report ---
Test Performed on : 04/06/2019 06:36:35 AM Test Reason : Acute SD Blood Pressure : / mmHG Vent. Rate : 080 BPM Atrial Rate : 080 BPM P-R Int : 160 ms QRS Dur : 102 ms QT Int : 422 ms P-R-T Axes : 048 077 121 degrees QTc Int : 486 ms Normal sinus rhythm. Possible Left atrial enlargement ST & T wave abnormality, consider anterolateral ischemia Prolonged QT Abnormal ECG When compared with ECG of 05-APR-2019 05:53, T wave inversion more evident in Anterior leads Confirmed by Mike PEDRAZA, Mao Kelley ([id number]) on 04/06/2019 12:08:32 PM
[2019-04-06 07:19] LABS: CALCIUM 9.7 mg/dL (8.8-10.2); CREATININE 4.8 mg/dL (0.7-1.2); POTASSIUM 4.8 mmol/L (3.5-5.1)
[2019-04-06 07:34] VITALS: BP 121/70
[2019-04-06 08:12] LABS: BASO# 0.04 X1000 (0.0-0.2); BASO% 0.3 % (0.0-0.8); EOS# 0.01 X1000 (0.0-0.7); EOS% 0.1 % (0.0-10.0); HEMATOCRIT 28.6 % (42.0-52.0); IMM GRAN# 0.06 X1000 (0.0-0.04); IMM GRAN% 0.5 % (0.0-0.5); LYMPH% 5.8 % (20.5-51.1); MCH 34.6 PG (27-31); MCHC 31.5 g/dL (33-37); MONO# 0.55 X1000 (0.11-0.59); MONO% 4.6 % (1.7-9.3); MPV 10.6 FL (7.4-10.4); NEUT# 10.61 X1000 (1.4-6.5); NEUT% 88.7 % (42.2-75.2); PLT 447 X1000 (130-400); RDW 15.6 % (11.5-14.5); WBC 11.97 X1000 (4.8-10.8)
--- NOTE | 2019-04-06 08:30 | CARDIOLOGY PROGRESS NOTE ---
DATE: 04/06/2019 CHIEF COMPLAINT: Chest discomfort, shortness of breath. SUBJECTIVE: Mr. Hager had an uneventful night. He is breathing more comfortably. Not having any chest pain. OBJECTIVE: Vital signs: This morning, blood pressure is 121/70, temperature 98.2, pulse 82, respirations 16. He is awake, alert, in no distress. HEENT is unremarkable. Chest sounds fairly clear to auscultation and percussion. There are some rales in the left base that change with cough. Heart sounds are regular and rhythmic. I do not hear gallop or murmur. His abdomen is nontender. Extremities showed no edema. Neurologic: Follows commands. Moves all 4 extremities. DIAGNOSTIC DATA: Hemoglobin from this morning is pending. PTT was therapeutic. Sodium 136, potassium 4.8, BUN is 49, creatinine 4.8. A 12-lead EKG was done, and it shows sinus rhythm with a less pronounced ST depression. CPK and troponin are pending from this morning as well as the hemoglobin. IMPRESSION: 1. The patient presented with a [id number] myocardial infarction with acute pulmonary edema. 2. History of multivessel coronary artery disease, previous stents to right coronary artery twice and then LAD. 3. History of sick sinus syndrome, post pacemaker implantation. 4. Chronic anemia. RECOMMENDATIONS: At this time, I would advise to pursue with diagnostic heart catheterization. The patient has been premedicated with prednisone and Benadryl. He does report an allergy. I have discussed with the [facility], and I think probably it is best to go ahead and do the heart cath first and see what he has and then decide on whether or not he needs surgical or percutaneous revascularization. At that point, a decision can be made as to whether or not he needs to be transfused or any other measures that may help to optimize his situation. At this time, I believe we have done the best we can do here, and we really need to proceed with a heart catheterization with a presumptive diagnosis of a partially obstructive lesion probably in the LAD that might benefit from percutaneous intervention. cc: Froilan Rossi MD
[2019-04-06] MEDS: HEPARIN IV PRN (08:39)
[2019-04-06 09:23] LABS: CK INDEX 4.1 (0.0-2.5); CK-MB 9.44 ng/mL (0.0-5.0)
[2019-04-06 10:12] LABS: BANDS 2 % (0-1); HYPOCHROM 1+; LYMPHS 6 % (21-51); MONO 4 % (1-9); SEGS 88 % (42-75)
--- NOTE | 2019-04-06 10:41 | NEPHROLOGY PROGRESS NOTE ---
DATE: 04/06/2019 TIME SEEN: 0645. SUBJECTIVE: Mr. Hughes is resting quietly in bed. States that he is waiting for his primary care to come in to release him to be transferred to [facility] for a possible left heart catheterization. LABORATORY DATA: Sodium 136, potassium 4.8, chloride 95, CO2 of 21, BUN 49, creatinine 4.8, glucose is 358. The patient has an anion gap of 21. His calcium is 9.7. His troponin is elevated at 1896, with a CK-MB of 9.44, PTT 45.5. White count 11.97, hemoglobin 9, hematocrit 28.6, with a platelet count of 447,000. OBJECTIVE: Most Recent Vital Signs: Temperature 98.6 degrees, blood pressure 132/62, heart rate 88, respirations are 19. He is on 4 L nasal cannula. Last recorded saturation 95%. He has had 1125 in, 4270 out, for a total of 8.8 L in the last 48 hours over the weekend with dialysis. General: This is a 78-year-old, white male, who is resting quietly in bed. He is in no acute distress, though he appears chronically ill. Skin: Warm and dry. HEENT: Normocephalic, atraumatic. Conjunctiva is pale pink. He has REJI. Mucous membranes are dry. Neck: Supple. Trachea midline. No evidence of JVD in the upright position. Cardiovascular: He is regular rate and rhythm. He is positive for a gallop. Lungs: Clear to auscultation anteriorly. Equal excursion. No crackles to the bases. Remains on O2. Abdomen: Soft, nontender. Positive bowel sounds. Genitourinary: Not inspected. Minimal void with dialysis assist. Extremities: No edema. No clubbing or cyanosis. Neurological: He is alert and oriented x3. Able to assist with exam. ASSESSMENT AND PLAN: 1. Chronic kidney disease stage 5D. The patient was dialyzed for 3 days straight to assist with his fluid volume overload. No indications for intervention today. His normal dialysis treatment will be in the morning. 2. Acute pulmonary edema related to NSTEMI. The patient has been scheduled for a left heart catheterization in [place] this morning. He is awaiting transfer. We will defer to the Cardiology team. 3. Anemia. This is modest, requiring no changes. 4. Electrolytes. These are acceptable. 5. Anemia. This is acceptable. I would like to thank you for allowing us to follow with this patient. Dictated by JANNA Goldsmith for Frank Martin MD Face to face encounter, data reviewed, discussed with Tapan Keen on 04/06/19. I agree with the above assessment and plan of care. cc: JANNA Goldsmith MD [facility]
[2019-04-06] MEDS ORDERED: PREDNISONE PO SCH (21:00)
--- NOTE | 2019-05-08 20:51 | DISCHARGE SUMMARY ---
ADMISSION DATE: 04/03/2019 DISCHARGE DATE: 04/06/2019 DISCHARGE DIAGNOSES: 1. Non ST-elevation myocardial infarction. 2. Anemia. 3. Pulmonary edema. 4. End-stage renal. CONSULTATIONS: Dr. Rossi, cardiology. Dr. Martin, nephrology. HOSPITAL COURSE: Briefly, this is a 78-year-old gentleman who came in for chest pain. He actually was at [facility] for an elective cardiac cath today, but because of anemia and several other factors, he was sent home at that point he developed chest pain, dyspnea, and came in for evaluation. He has diabetes, hypertension, end-stage renal. He came in respiratory failure, had to be put on BiPAP and had to have urgent dialysis per Dr. Martin. His initial troponin was 1346, which was felt possibly due to renal dysfunction, but also could be possibly due to ischemic heart disease. Cardiology was consulted. He ended up staying at our facility. His EF was 50%. There was basal inferior wall, apical anterior wall, apical lateral wall impairment with possible wall motion abnormality. Cardiology was consulted. They also felt that the patient needed cardiac catheterization because of his respiratory insufficiency. He went through dialysis to get treatment. He was placed on isosorbide dinitrate, hydralazine. He improved. Dr. Martin was consulted. He was stabilized, received serial dialysis, improved. Dr. Rossi felt that he also had a non-STEMI and would need cardiac catheterization and then he ended up being transferred to [facility] on the for cardiac catheterization, from what I understand. He was recommended for coronary artery bypass graft. DISCHARGE MEDICATIONS: Zocor, aspirin, Celexa, folic acid, Lasix, insulin, Lantus, Mirapex, Prilosec, PhosLo, lisinopril, Toprol, tramadol. Further recommendations per [facility] cardiologists. 32 minute discharge. cc: Jason Monk MD
== END 2019-04-06 09:00 | disposition short-term general hospital (02) | DRG 280 ==
LOC: SUPCPDRO → ED 12:20 → 2N 18:21
PROVIDERS: ATTEND Internal Medicine